=== PATIENT | male | born 1960 | race Caucasian/White ===

== ENCOUNTER 2020-09-09 09:14 | Day surgery (SDC) | payer OTHER, SELFPAY ==
[2020-09-05 12:16] VITALS: BMI 27.3
--- NOTE | 2020-09-08 08:56 | HO.ANESPROP2 ---
Documented by User: Olivia Lee 09/08/20 08:57 HPI - Anesthesia Eval Consult details Narrative: 60yo M for Colonoscopy PMFSH Past Medical History Medical History Cervical radiculopathy Elevated cholesterol HTN (hypertension) Hx of renal calculi Smoker Surgical History Surgical History Hx of colonoscopy Social History Social History Alcohol intake: current Alcohol intake frequency: a few times a month Smoking Status: Current every day smoker Tobacco Type: Cigarette Years Smoked: 45 Use of substances other than those prescribed or required for medical reasons: No Advance Directives: No Advance Directives Information Provided: No Advance Directives on File: No Meds Allergies Allergy/AdvReac Type Severity Reaction Status Date / Time No Known Allergies Allergy Verified 09/08/20 08:58 Home Medications Medication Instructions Recorded Confirmed Type amlodipine 1 tab PO DAILY 09/05/20 09/09/20 History gabapentin 100 mg PO TID PRN 09/05/20 09/09/20 History lisinopril 1 tab PO DAILY 09/05/20 09/09/20 History pravastatin 1 tab PO DAILY 09/05/20 09/09/20 History pyridoxine (vitamin B6) tab PO 09/05/20 History Exam Exam Date and Time: September 08, 2020 0856 Height,Weight and Vital Signs: Height 5 ft 8 in Weight 81.647 kg Assessment and Plan Assessment Anesthesia Assessment: Chart Reviewed Documented by User: Breanne Pineda 09/09/20 10:25 PMFSH Past Medical History Medical History Cervical radiculopathy Elevated cholesterol HTN (hypertension) Hx of renal calculi Smoker Surgical History Surgical History Hx of colonoscopy Social History Social History Alcohol intake: current Alcohol intake frequency: a few times a month Smoking Status: Current every day smoker Tobacco Type: Cigarette Years Smoked: 45 Use of substances other than those prescribed or required for medical reasons: No Advance Directives: No Advance Directives Information Provided: No Advance Directives on File: No Meds Allergies Allergy/AdvReac Type Severity Reaction Status Date / Time No Known Allergies Allergy Verified 09/08/20 08:58 Home Medications Medication Instructions Recorded Confirmed Type amlodipine 1 tab PO DAILY 09/05/20 09/09/20 History gabapentin 100 mg PO TID PRN 09/05/20 09/09/20 History lisinopril 1 tab PO DAILY 09/05/20 09/09/20 History pravastatin 1 tab PO DAILY 09/05/20 09/09/20 History pyridoxine (vitamin B6) tab PO 09/05/20 History Assessment and Plan Assessment Anesthesia Assessment: Anesthesia Plan Discussed, Smoking Cess. Discussed and Chart Reviewed Final Anesthetic Review NPO: Yes ASA Class: II Final Preanesthetic Review: No Changes in Pt Med Stat, Meds/Allgs Chart Reviewed, Consent Obtained/Reviewed and Anes Risks/Benef Reviewed Patient Risk: Low Procedure Risk: Low Anesthetic Plan Anesthetic Plan: MAC: Disposition: Standard PACU
[2020-09-09 09:41] VITALS: BP 129/84; PULSE 74; RESP 20; TEMP 35.7; O2SAT 99
--- NOTE | 2020-09-09 10:18 | MHC.SHP ---
Pre-Procedural Eval Section A The patient is an INPATIENT: No The History & Physical has been completed within 30 days and I have reviewed it.: No Section B Chief Complaint: SCREENING Details of Present Illness: He denies any bowel problems nor are there any upper GI problems. THere are no prior problems with anesthesia or sedation. He denies any cardiac or respiratory problems. There is no known FHX of crc or polyps, the patient had 3 TA's removed in 2013. Relevant Social History: Tobacco Use Present Medications: see Short Stay Collaborative assessment Medical History: Significant History ( Insomina. High BP. Kidney stones. Hematuria. Smoker - onset 14, 1ppd x 45yrs, 45pyh. ) History of Previous Operations: Relevant previous surgery/procedure and date(s) (Colonoscopy 2013) Allergies: Allergies Allergy/AdvReac Type Severity Reaction Status Date / Time No Known Allergies Allergy Verified 09/08/20 08:58 Review of Systems Sugical H&P ROS: Negative: Constitution, Cardiovascular, Respiratory and Gastrointestinal Exam Surgical H&P Exam: Normal: Heart, Normal: Lungs and Normal: Extremities Plan Diagnosis/Plan: Unchanged Patient has been examined and remains a candidate for the planned procedure
--- NOTE | 2020-09-09 10:25 | P.CONAN_ITS ---
[facility] Past Medical History Medical History Cervical radiculopathy Elevated cholesterol HTN (hypertension) Hx of renal calculi Smoker Surgical History Surgical History Hx of colonoscopy Social History Social History Alcohol intake: current Alcohol intake frequency: a few times a month Smoking Status: Current every day smoker Tobacco Type: Cigarette Years Smoked: 45 Use of substances other than those prescribed or required for medical reasons: No Advance Directives: No Advance Directives Information Provided: No Advance Directives on File: No Meds Allergies Allergy/AdvReac Type Severity Reaction Status Date / Time No Known Allergies Allergy Verified 09/08/20 08:58 Home Medications Medication Instructions Recorded Confirmed Type amlodipine 1 tab PO DAILY 09/05/20 09/09/20 History gabapentin 100 mg PO TID PRN 09/05/20 09/09/20 History lisinopril 1 tab PO DAILY 09/05/20 09/09/20 History pravastatin 1 tab PO DAILY 09/05/20 09/09/20 History pyridoxine (vitamin B6) tab PO 09/05/20 History Exam Exam Date and Time: September 09, 2020 1025 Height,Weight and Vital Signs: Height 5 ft 8 in Weight 81.647 kg Last Vital Signs Temp 96.2 F L 09/09/20 09:41 Pulse 74 09/09/20 09:41 Resp 20 09/09/20 09:41 BP 129/84 09/09/20 09:41 Pulse Ox 99 09/09/20 09:41 Airway Mallampati Class: II TM Dist: >3cm Neck ROM: Full Partial: Upper Heart: RRR Lungs: CTA
[2020-09-09 11:23] VITALS: BP 100/68; PULSE 89; RESP 16; TEMP 36.6; O2SAT 96
[2020-09-09 11:38] VITALS: BP 125/80; PULSE 62; RESP 16; O2SAT 96
--- NOTE | 2020-09-09 12:12 | HO.POSTANES ---
Post Anesthesia Evaluation Post Anesthesia Evaluation Vital Signs: Vital Signs Temp Pulse Resp BP Pulse Ox 09/09/20 11:38 97.9 F 62 16 125/80 96 09/09/20 11:23 97.9 F 89 16 100/68 96 09/09/20 09:41 96.2 F L 74 20 129/84 99 Anesthesia: Monitored (tiva) Mental Status: Awake Pain Control: Satisfactory Nausea/Vomiting: None Hydration: Adequate Anesthesia-Related Issues: No Anes. Related Issues
--- NOTE | 2020-09-09 18:01 | P.OP_ITS ---
Operative Note Operative Note Narrative: Date of procedure: 09/09/20 Indications: colon cancer screening Postoperative diagnosis: colon polyps, diverticulosis Procedure: COLONOSCOPY TILL CECUM WITH SNARE POLYPECTOMY AND SUBMUCOSAL INJECTION Consent: Indications for the procedure and potential complications of bleeding, perforation, reaction to medications and missed diagnosis were discussed with the patient and informed consent was obtained. Instrument: Olympus PCF H 190 L variable stiffness pediatric colonoscope Monitoring: Vital signs and clinical assessment, intermittent blood pressure monitoring, continuous EKG monitoring, Pulse oximetry and Carbon Dioxide monitoring were done throughout the procedure. Colon withdrawl time was 35 minutes. Procedure: The patient was placed in the left lateral decubitis position and pre-procedure medications were administered. After a digital rectal examination of the ano-rectum, the video colonoscope was inserted into the rectum and advanced through the colon to the cecum. The colonoscope was slowly withdrawn in a retrograde panoramic fashion and the colon mucosa was carefully examined including a retroflexed view of the rectum. Findings and interventions are described below. Procedure Difficulty: Without difficulty. There was excessive spasm in the colon. Findings: Terminal Ileum: Not evaluated Cecum: Normal Ascending Colon: A 12-15 mm flat polyp in proximal AC raised with 5 cc of normal saline (submucosal injection) and removed with a hot snare. Moderate diverticulosis. Transverse Colon: A 10-12 mm sessile polyp removed with a hot snare and moderate diverticulosis. Descending Colon: Moderate diverticulosis. Sigmoid Colon: A 10-12 mm sessile polyp removed with a hot snare. Moderate diverticulosis Rectum: Normal Ano-rectum: Normal Colon preparation: Good after copious irrigation and fair in some areas Impression and Post Procedure Diagnosis: Colonoscopy Findings: Three medium sized polyps removed Moderate diverticulosis seen in the entire colon Moderate hemorrhoids on retroflexed exam. Plan: Await pathology results Patient has an appointment on 10/03/20 in the [facility] with Emily Mcneil NP -. Repeat Colonoscopy interval based on path results - in 3 years if polyps are adenomatous and 5 years if polyps are hyperplastic. Above findings were reviewed with the patient and colon polyps and diverticulosis handouts were given in the discharge area Surgeon: Kathleen Terrell MD Anesthesia: MAC (Dr Salazar) Biomedical Analytical Scientist: Logan Ramirez Estimated blood loss (mL): 0 Pathology: other (A. AC polyp x 1, B. TC polyp x 1, C. SC polyp x 1) Condition: stable Disposition: PACU
== END 2020-09-09 12:45 | disposition home or self-care (01) ==
PROVIDERS: PCP Nurse Practitioner Family; Visit Provider Internal Medicine Gastroenterology
PROC: 0DJD8ZZ Inspection of Lower Intestinal Tract, Via Natural or Artificial Opening Endoscopic (ICD-10-PCS; CPT 45378; principal; 2020-09-09 10:30)
DX: Z12.11 Encounter for screening for malignant neoplasm of colon (principal); Z86.010 Personal history of colon polyps; D12.2 Benign neoplasm of ascending colon; D12.3 Benign neoplasm of transverse colon; D12.5 Benign neoplasm of sigmoid colon; K57.30 Diverticulosis of large intestine without perforation or abscess without bleeding; I10 Essential (primary) hypertension; Z79.899 Other long term (current) drug therapy; F17.210 Nicotine dependence, cigarettes, uncomplicated
CPT/HCPCS: 45385; 45381; 88305

== ENCOUNTER 2020-12-07 12:21 | Outpatient (REF) | payer OTHER, SELFPAY ==
[2020-12-07 14:28] LABS: Alanine Aminotransferase 20 U/L (0-40); Albumin Level 4.5 g/dL (3.5-5.0); Alkaline Phosphatase 72 U/L (39-117); Anion Gap 16 (12-20); Aspartate Amino Transferase 24 U/L (5-37); Bilirubin Total 0.8 mg/dL (0.0-1.0); Blood Urea Nitrogen 16 mg/dL (9-16); Calcium 9.2 mg/dL (8.4-10.2); Carbon Dioxide 27 mmol/L (22-29); Chloride 105 mmol/L (96-108); Cholesterol 266 mg/dL; Estimated Glomerular Filt Rate > 60; Glucose Fasting 97 mg/dL (60-99); HDL Cholesterol 69 mg/dL; LDL Cholesterol Calculated 164 mg/dl; Potassium 4.6 mmol/L (3.3-5.1); Sodium 143 mmol/L (135-145); Total Protein 7.5 g/dL (6.5-8.0); Triglycerides 165 mg/dL
[2020-12-07 14:49] LABS: Prostate Specific Antigen Scr 2.54 ng/mL (<0.05-4.0); TSH reflex Free T4 1.06 uIU/mL (0.32-4.0)
== END 2020-12-07 12:22 | disposition home or self-care (01) ==
LOC: HO.HMGCLDS 12:21
PROVIDERS: PCP Nurse Practitioner Family; Visit Provider Nurse Practitioner Family
DX: Z00.00 Encounter for general adult medical examination without abnormal findings (principal); Z12.5 Encounter for screening for malignant neoplasm of prostate
CPT/HCPCS: 36415; 80053; 80061; 81002; 84153; 84443

== ENCOUNTER 2021-03-02 06:08 | Outpatient (REF) | payer OTHER, SELFPAY ==
[2021-03-02 12:35] LABS: Cholesterol 238 mg/dL; HDL Cholesterol 56 mg/dL; LDL Cholesterol Calculated 157 mg/dl; Triglycerides 126 mg/dL
== END 2021-03-02 06:09 | disposition home or self-care (01) ==
LOC: HO.HMGCLDS 06:08
PROVIDERS: PCP Nurse Practitioner Family; Visit Provider Nurse Practitioner Family
DX: E78.5 Hyperlipidemia, unspecified (principal)
CPT/HCPCS: 36415; 80061

== ENCOUNTER 2021-06-05 16:14 | Outpatient (REF) | payer OTHER, SELFPAY ==
--- NOTE | ~2021-06-05 | CT_ITS ---
EXAMINATION: CT CHEST SCREENING CLINICAL INFORMATION: Nicotine dependence, cigarettes, uncomplicated. COMPARISON: None. TECHNIQUE: Multidetector volumetric CT imaging of the chest is performed without contrast using low-dose technique. Additional 2-D coronal and sagittal reformatted images and axial 3-D maximum intensity projection (MIP) images are generated on the CT workstation. This CT examination was performed using dose optimization techniques as appropriate, variously including the following: *Automated exposure control *Adjustment of mA and/or kV according to patient size (this includes techniques or standardized protocols for targeted exams where dose is matched to indication/reason for exam; i.e. extremities or head) *Use of iterative reconstruction technique DLP: 56 mGy-cm FINDINGS: LUNGS: There is centrilobular emphysema in both lungs with a few scattered pulmonary nodules. 2 mm nodule left upper lobe laterally image 181/6, 1 mm nodule right upper lobe axial image 164/6, 2 mm nodule right middle lobe axial image 307/6, and 2 mm nodule right lower lobe axial image 303/6. There is a 2 mm nodule left lower lobe axial image 400/6. MEDIASTINUM: The thyroid lobes are symmetrical and normal. There are coronary artery calcifications. The ascending aorta measures 4.00 cm. Central trachea and the bronchi are widely patent. No abnormal sized mediastinal mass or lymph node seen. There is no pericardial effusion. PLEURA: There is no pleural effusion. No pleural mass or thickening. AXILLA: No lymphadenopathy. UPPER ABDOMEN: Visualized liver, spleen, pancreas, and bilateral adrenal glands are unremarkable. OSSEOUS STRUCTURES: There is mild ventral spondylosis mid dorsal spine. No lytic or sclerotic process seen. CT/CT lung screening IMPRESSION: Emphysema and multiple pulmonary nodules are stable. No new pulmonary nodules seen. No abnormal mediastinal or axillary lymphadenopathy. ASSESSMENT: Lung-RADS category 2: Benign RECOMMENDATION: Low dose annual CT chest
== END 2021-06-05 16:15 | disposition home or self-care (01) ==
LOC: HO.CT 16:14
PROVIDERS: Visit Provider Physician Assistant Medical
DX: Z12.2 Encounter for screening for malignant neoplasm of respiratory organs (principal); F17.210 Nicotine dependence, cigarettes, uncomplicated
CPT/HCPCS: 71271

== ENCOUNTER 2021-10-10 13:59 | Outpatient (REF) | payer OTHER, SELFPAY ==
[2021-10-10 15:04] LABS: Influenza A PCR NEGATIVE (Negative); Influenza B PCR NEGATIVE (Negative); Resp Syncy Virus RNA Qual PCR NEGATIVE (Negative); SARS COV2 PCR INHOUSE POSITIVE (Negative)
== END 2021-10-10 14:00 | disposition home or self-care (01) ==
LOC: HO.LNP 13:59
PROVIDERS: Visit Provider Physician Assistant Medical
DX: Z20.822 Contact with and (suspected) exposure to COVID-19 (principal); J06.9 Acute upper respiratory infection, unspecified
CPT/HCPCS: 0241U

== ENCOUNTER 2021-10-23 09:21 | Outpatient (REF) | payer OTHER, SELFPAY | END 2021-10-23 09:22 | disposition home or self-care (01) | LOC: HO.HMGCLDS 09:21 | PROVIDERS: Visit Provider Internal Medicine | DX: Z20.822 Contact with and (suspected) exposure to COVID-19 (principal) | CPT/HCPCS: C9803; U0003; U0005 ==

== ENCOUNTER 2022-03-05 11:48 | Outpatient (REF) | payer OTHER, SELFPAY ==
[2022-03-05 13:38] LABS: MANUAL DIFF FLAG NO
[2022-03-05 13:45] LABS: Appearance Urine HAZY; Color Urine YELLOW; Glucose Urine UA NEG (NEG); Leukocyte Esterase Urine NEG (NEG); Nitrite Urine NEG (NEG); Specific Gravity - Urine 1.025 (1.005-1.025); Urine Blood NEG (NEG); Urine Ketones NEG (NEG); Urine Protein NEG (NEG-TRACE)
[2022-03-05 13:48] LABS: Basophils Absolute Auto 0.1 X10*3/uL (0.0-0.2); Basophils Percent Auto 0.9 % (0-2); Eosinophils Absolute Auto 0.4 X10*3/uL (0.0-0.4); Eosinophils Percent Auto 4.6 % (0-4); Hematocrit 46.4 % (42.0-52.0); Hemoglobin 15.7 g/dl (14.0-18.0); Imm Gran Abs Auto 0.03 X10*3/uL (0.00-0.03); Imm Gran Pct Auto 0.4 % (0.0-0.4); Lymphocytes Absolute Auto 2.2 X10*3/uL (1.2-4.9); Lymphocytes Percent Auto 28.6 % (20-40); Mean Corpuscular HGB Conc 33.8 g/dl (31.0-36.0); Mean Corpuscular Hemoglobin 30.9 pg (27.0-33.0); Mean Corpuscular Volume 91.3 fL (80.0-98.0); Mean Platelet Volume 10.5 fL (9.4-12.4); Monocytes Absolute Auto 0.6 X10*3/uL (0.1-1.2); Monocytes Percent Auto 8.1 % (2-11); Neutrophils Absolute Auto 4.5 x10*3/uL (2.0-8.3); Neutrophils Percent Auto 57.4 % (45-73); Platelet Count 242 X10*3/uL (160-400); Red Blood Count 5.08 X10*6/uL (4.60-5.80); Red Cell Distribution Width 12.9 % (11.0-16.0); White Blood Count 7.8 X10*3/uL (4.8-10.8)
[2022-03-05 14:05] LABS: Alanine Aminotransferase 23 U/L (0-40); Albumin Level 4.4 g/dL (3.5-5.0); Alkaline Phosphatase 70 U/L (39-117); Anion Gap 14 (12-20); Aspartate Amino Transferase 24 U/L (5-37); Bilirubin Total 0.7 mg/dL (0.0-1.0); Blood Urea Nitrogen 12 mg/dL (9-16); Calcium 9.7 mg/dL (8.4-10.2); Carbon Dioxide 23 mmol/L (22-29); Chloride 108 mmol/L (96-108); Cholesterol 216 mg/dL; Estimated Glomerular Filt Rate > 60; Glucose Fasting 93 mg/dL (60-99); HDL Cholesterol 70 mg/dL; LDL Cholesterol Calculated 115 mg/dl; Potassium 4.6 mmol/L (3.3-5.1); Sodium 140 mmol/L (135-145); Total Protein 7.4 g/dL (6.5-8.0); Triglycerides 159 mg/dL
[2022-03-05 14:23] LABS: Prostate Specific Antigen Scr 2.77 ng/mL (<0.05-4.0); TSH reflex Free T4 1.44 uIU/mL (0.32-4.0)
== END 2022-03-05 11:49 | disposition home or self-care (01) ==
LOC: HO.HMGCLDS 11:48
PROVIDERS: Visit Provider Nurse Practitioner Family
DX: Z00.00 Encounter for general adult medical examination without abnormal findings (principal); Z13.220 Encounter for screening for lipoid disorders; Z13.29 Encounter for screening for other suspected endocrine disorder; Z12.5 Encounter for screening for malignant neoplasm of prostate
CPT/HCPCS: 36415; 80053; 80061; 81003; 84153; 84443; 85025

== ENCOUNTER 2024-12-22 13:34 | Outpatient (AMB) | payer MEDICARE, SELFPAY ==
--- NOTE | 2024-12-22 13:46 | MHC.OFFWIV ---
Intake Vital Signs 12/22/24 13:49 Weight 187 lb BP 140/100 H Blood Pressure Location Lt brachial Position Sitting Pulse 61 Pulse Source Pulse Oximeter Temp 98.1 F Temp Source Oral Pulse Oximetry (%) 94 Oxygen Delivery Method Room Air Intake Visit Reasons: EP SOB, fever, sore throat Intake Note: Patient here for SOB, fever, cough, chest congestion that has been present for 1 week. Patient Tobacco Use Status: Current everyday Tobacco user Allergies lisinopril Allergy (Intermediate, Verified 12/22/24 13:50) Muscle Pain Do you need a note to return to daycare/school/sports/work: No HPI HPI Comments History of Present Illness Details History - The patient is a 64-year-old male presenting with acute shortness of breath and cough x 1 week. - Symptoms commenced mid-week with sudden breathing difficulties manifesting alongside a persistent cough, initially without other symptoms. - The patient has a long history of smoking, though specific details of duration remain unspecified, indicating potential respiratory implications. Denies asthma or COPD diagnosis. Does not use inhalers regularly. - Episodes of acute dyspnea were recurring over several days, requiring positional changes for relief. - A trial of an unknown inhaler by a third libertarian provided limited improvement - Circumstantial development of both respiratory and cough symptoms seemed synchronous, localized to the chest region. - Pharmacological interventions included Tylenol and Aleve, aiding some symptomatic reduction like fever resolution. Physical Exam General: Cooperative, healthy appearing, comfortable and no acute distress Orientation/consciousness: Patient oriented x3 Limitations: No limitations Head: Normal to inspection Ears: Hearing grossly normal bilaterally, external ears normal and TM's normal bilaterally Nose: Normal external nose present, Normal nares present and No nasal discharge present Face and sinus: Normal facial exam and Yes sinuses nontender Mouth: Normal oral and palatal mucosa present and moist mucous membranes Throat: Yes tonsils normal, Yes uvula midline. Posterior oropharynx erythema Eyes: Appearance normal, both eyes and all related structures Neck: Normal visual inspection Respiratory: dim and vesicular throughout, no wheeze noted. Normal respiratory effort, able to speak in complete sentences, Actively coughing, no respiratory distress, not tachypneic, no tripod positioning and no use of accessory muscles Cardiovascular: Regular rate and rhythm. Normal S1 and S2 Skin: No rashes or lesions noted Neuro: Patient oriented x3 Extremities: Normal to inspection and Yes no clubbing, cyanosis or edema Plan A chest x-ray will be performed to assess for potential pneumonia, supported by the diminished and crackling lung sounds during the physical exam. An albuterol inhaler is prescribed to manage acute bronchodilation needs, with comprehensive guidance on its use. A six-day steroid taper with methylprednisolone is planned for alleviating airway inflammation. Proper dosing was instructed, emphasizing morning consumption to enhance treatment efficacy. Nasal swabs for flu, COVID-19, and other respiratory infections have been collected to guide any subsequent treatment maneuvers. If x-ray findings indicate pneumonia, oral antibiotics will be initiated. Patient education included advocating prompt emergency care, should the patient experience severe respiratory compromise, to ensure timely medical intervention remains accessible. Patient was informed and verbally consented to the use of an ambient scribe for clinic note documentation during this visit History - The patient is a 64-year-old male presenting with acute shortness of breath and cough. - Symptoms commenced mid-week with sudden breathing difficulties manifesting alongside a persistent cough, initially without other symptoms. - The patient has a long history of smoking, though specific details of duration remain unspecified, indicating potential respiratory implications. - Episodes of acute dyspnea were recurring over several days, requiring positional changes for relief. - A trial of an unknown inhaler by a third libertarian provided limited improvement before plans for a personalized prescription. - Circumstantial development of both respiratory and cough symptoms seemed synchronous, localized to the chest region. - Vital signs revealed initial bradycardia with subsequent stabilization. Hypertension is on record per a previous medical evaluation. - Pharmacological interventions included Tylenol and Aleve, aiding some symptomatic reduction like fever resolution. Physical Exam General: Cooperative, healthy appearing, comfortable and no acute distress Orientation/consciousness: Patient oriented x3 Limitations: No limitations Head: Normal to inspection Ears: Hearing grossly normal bilaterally, external ears normal and TM's normal bilaterally Nose: Normal external nose present, Normal nares present and No nasal discharge present Face and sinus: Normal facial exam and Yes sinuses nontender Mouth: Normal oral and palatal mucosa present and moist mucous membranes Throat: Yes tonsils normal, Yes uvula midline. Posterior oropharynx erythema Eyes: Appearance normal, both eyes and all related structures Neck: Normal visual inspection Respiratory: Clear to auscultation bilaterally. Normal respiratory effort, able to speak in complete sentences, Actively coughing, no respiratory distress, not tachypneic, no tripod positioning and no use of accessory muscles Cardiovascular: Regular rate and rhythm. Normal S1 and S2 Skin: No rashes or lesions noted Neuro: Patient oriented x3 Extremities: Normal to inspection and Yes no clubbing, cyanosis or edema PFSH Medical History Cervical radiculopathy Diverticulosis Elevated cholesterol HTN (hypertension) Hx of renal calculi Smoker Surgical History Hx of colonoscopy Family History Father Prostate cancer Mother Bone cancer Social History Housing: House Alcohol intake: current Alcohol intake frequency: a few times a month Patient Tobacco Use Status: Current everyday Tobacco user Cigarettes Per Day: 10 Years Smoked: 45 e-Cigarette/Vaping Use: Never Used Second Hand Smoke Exposure: No Current occupational status: employed Cognitive needs: No Hearing needs: No Vision needs: No Review of Systems Const All systems reviewed & are unremarkable except as noted in HPI and below Physical Exam Vital Signs: Last Vital Signs Temp 98.1 F 12/22/24 13:49 Pulse 51 12/22/24 13:49 BP 140/100 H 12/22/24 13:49 Pulse Ox 94 12/22/24 13:49 Oxygen Delivery Method Room Air 12/22/24 13:49 Assessment & Plan Assessment & Plan (1) URI (upper respiratory infection): Code(s): J06.9 - Acute upper respiratory infection, unspecified Qualifiers: URI type: unspecified URI Qualified Code(s): J06.9 - Acute upper respiratory infection, unspecified Plan: Plan A chest x-ray will be performed to assess for potential pneumonia, supported by O2 sat 94%, the diminished and vesicular lung sounds during the physical exam. An albuterol inhaler is prescribed to manage acute bronchodilation needs, with comprehensive guidance on its use. A six-day steroid taper with methylprednisolone is planned for alleviating airway inflammation. Proper dosing was instructed, emphasizing morning consumption to enhance treatment efficacy. Nasal swabs for flu, COVID-19, and other respiratory infections have been collected to guide any subsequent treatment maneuvers. If x-ray findings indicate pneumonia, oral antibiotics will be initiated. Patient education included advocating prompt emergency care, should the patient experience severe respiratory compromise, to ensure timely medical intervention remains accessible. Patient was informed and verbally consented to the use of an ambient scribe for clinic note documentation during this visit Orders: Orders SARS-CoV2/FLU/RSV Today J06.9 - Acute upper respiratory infection, unspecified XR chest 2V Today R05.9 - Cough, unspecified Medications: New albuterol sulfate 90 mcg/actuation 2 puffs inhalation Q6H PRN 8.5 grams 0RF shortness of breath or wheezing or cough methylprednisolone PO PER PKG DIR for 6 days 21 ea 0RF Coding Level of Care Code Est Pt Level 4 (04615) Diagnoses Upper respiratory tract infection, unspecified type J06.9 URI type: unspecified URI
[2024-12-22 13:49] VITALS: BP 140/100; PULSE 61; TEMP 36.7; O2SAT 94
--- OUTSIDE RECORDS SUMMARY | 2024-12-22 14:30 | XMS_ITS | Clinical Summary ---
Author Organization [facility] ity Address [address] [place] [address] Care Team Providers Care Heel Seater Name Role Phone Unavailable Primary Care Provider Unavailabl e Social History Tobacco Use Types Packs/Day Years Used Date Smoking Tobacco: Never Assessed Sex and Gender Information Value Date Recorded Sex Assigned at Not on file Legal Sex Male 1:28 PM EST Gender Identity Not on file Sexual Orientation Not on file Plan of Treatment Health Maintenance Due Date Last Done Comments DTaP,Tdap,and Td Vaccines (1 - Tdap) 1978 Pneumococcal Vaccine: 50+ Ye ars (1 of 1 - PCV) 2009 Zoster Vaccines (1 of 2) 2009 COVID-19 Vaccine ( - 2023-2 5 season) 2024 Influenza Vaccine (#1) 2024 RSV Immunization Patients 60 + Years Old (1 - 1-dose 75+ series) 2034 HIB Vaccines Aged Out No longer eligi ble based on patient's age to complete this topic HPV Vaccines Aged Out No longer eligi ble based on patient's age to complete this topic Hepatitis A Vaccines Aged Out No long er eligible based on patient's age to complete this topic Hepatitis B Vaccines Aged Out No long er eligible based on patient's age to complete this topic IPV Vaccines Aged Out No longer eligi ble based on patient's age to complete this topic MMR Vaccines Aged Out No longer eligi ble based on patient's age to complete this topic Meningococcal ACWY Vaccine Aged Out N o longer eligible based on patient's age to complete this topic Meningococcal B Vacine Aged Out No lo nger eligible based on patient's age to complete this topic Pneumococcal Vaccine: Pediat rics (0 to 5 Years) and At-Risk Patients (6 to 64 Years) Aged Out No longer eligible b ased on patient's age to complete this topic RSV Immunization Patients Un gabriele 20 months Aged Out No longer eligible b ased on patient's age to complete this topic Varicella Vaccines Aged Out No longer eligible based on patient's age to complete this topic
== END 2024-12-22 14:24 | disposition home or self-care (01) ==
PROVIDERS: PCP Nurse Practitioner Family; Visit Provider Physician Assistant
DX: J06.9 Acute upper respiratory infection, unspecified (principal)

== ENCOUNTER 2024-12-22 13:34 | Outpatient (REF) | payer MEDICARE, SELFPAY ==
--- OUTSIDE RECORDS SUMMARY | 2024-12-22 15:10 | XMS_ITS | Clinical Summary ---
Author Organization [facility] ity Address [address] [place] [address] Care Team Providers Care Inspector Floor Sub Assembly Name Role Phone Unavailable Primary Care Provider [...]
[2024-12-22 17:01] LABS: Influenza A PCR NEGATIVE (Negative); Influenza B PCR NEGATIVE (Negative); Resp Syncy Virus RNA Qual PCR NEGATIVE (Negative); SARS COV2 PCR INHOUSE NEGATIVE (Negative)
== END 2024-12-22 13:35 | disposition home or self-care (01) ==
LOC: HO.LAB 13:34
PROVIDERS: Physician Assistant; PCP Nurse Practitioner Family
DX: J06.9 Acute upper respiratory infection, unspecified (principal)
CPT/HCPCS: 0241U; 99212

== ENCOUNTER 2024-12-22 14:18 | Outpatient (REF) | payer MEDICARE, SELFPAY ==
--- NOTE | ~2024-12-22 | XR_ITS ---
CLINICAL HISTORY: R05.9 - Cough, unspecified 2 view chest x-ray Comparison: None Findings: No consolidation or effusion. Heart size is normal. No acute fracture. IMPRESSION: 1. No acute cardiopulmonary abnormality. This document has been electronically signed by: Yvonne Cuenca on 12/23/2024 07:49:27
== END 2024-12-22 14:19 | disposition home or self-care (01) ==
LOC: HO.HMGCX 14:18
PROVIDERS: Visit Provider Physician Assistant
DX: R05.9 Cough, unspecified (principal); J06.9 Acute upper respiratory infection, unspecified
CPT/HCPCS: 0241U; 71046; 99212

== ENCOUNTER → 2024-12-22 14:31 | Outpatient (BNV) | payer MEDICARE, SELFPAY | PROVIDERS: Visit Provider Radiology Vascular & Interventional Radiology | DX: R05.9 Cough, unspecified (principal) | CPT/HCPCS: 71046 ==

== ENCOUNTER 2025-03-10 12:21 | Inpatient (IN) | payer MEDICARE, SELFPAY ==
[2025-03-10] VITALS (12 sets, daily range): BP systolic 131–191; BP diastolic 80–119; PULSE 92–114; RESP 18–25; TEMP 36.7–37.1; O2SAT 88–98; BMI 28.8
--- NOTE | ~2025-03-10 | CT_ITS ---
CLINICAL HISTORY: sob CT chest without IV contrast. COMPARISON: XR chest dated 03/10/25 at 14:11 EDT FINDINGS: Visualized thyroid is unremarkable. No supraclavicular or axillary lymphadenopathy. Main pulmonary artery is enlarged measuring up to 3.3 cm. This can be associated with pulmonary hypertension. Ascending aortic ectasia measuring up to 4.2 cm. Coronary artery calcifications present within the left main, LAD, circumflex and RCA. Aortic annular and valve calcifications. Mitral annular calcifications. No pericardial effusion. Normal esophagus. Multiple normal-sized mediastinal lymph nodes. Small bilateral pleural effusions. Moderate to advanced emphysema. Smooth interlobular septal thickening. Ground-glass and consolidation overlying the pleural effusions along the lung bases, favored to represent atelectasis, [id number]. Trachea and central airways are clear. Mild diffuse bronchial wall thickening. No bronchiectasis. Visualized portions of the upper abdomen are unremarkable. Flowing marginal osteophytes along the mid to lower thoracic spine. No acute fracture or suspicious bone lesion. IMPRESSION: 1. Small bilateral pleural effusions with interstitial edema. 2. Atelectasis along the lung bases bilaterally. 3. Moderate to advanced emphysema. 4. Coronary artery atherosclerosis. Mitral annular and aortic annular and valve calcifications present. This document has been electronically signed by: Reinaldo Cheek MD on 03/10/2025 17:47:34
--- NOTE | ~2025-03-10 | XR_ITS ---
EXAMINATION: XR CHEST 2 VIEWS HISTORY: SOB COMPARISON: Comparison is made with the prior examination dated 12/22/2024. FINDINGS: PA and lateral views of the chest are submitted. There is airspace opacity in the right lower lobe consistent with pneumonia. There is an associated small right pleural effusion. The left lung is clear. There is no left pleural effusion, pneumothorax, or pulmonary vascular congestion. The heart is normal in size. There is degenerative disc disease of the spine. XR/XR chest 2V IMPRESSION: Right lower lobe pneumonia with an associated small pleural effusion. Follow-up is recommended to document resolution. Electronically signed by: Neeraj Villeda MD 03/10/2025 02:15 PM EDT
--- NOTE | 2025-03-10 13:09 | ED.GENADULT ---
HPI - General Adult General Chief complaint: Dyspnea Stated complaint: SOB Time Seen by Provider: 03/10/25 14:47 Source: patient Mode of arrival: ambulatory Limitations: no limitations History of Present Illness ED Provider: DR. Cruz HPI narrative: A 64 year year old male history of hypertension patient is not compliant with his medication for the last year, did not see PCP for over a year, seen at walk-in clinic for upper respiratory symptoms about 2 months ago, ever since patient been having shortness of breath mostly exertional, patient also having hard time to stay supine at night because of the difficulty breathing, no lower extremity swelling, no sick contacts, no fever, no chills. +nonproductive cough, patient is an active cigarette smoker. No CP, no recent travel, no lower extremity swelling or tenderness. Related Data Previous Rx's ?Medication ?Instructions ?Recorded albuterol sulfate 90 mcg/actuation 2 puff inhalation Q6H PRN 12/22/24 aerosol inhaler shortness of breath or wheezing or cough #8.5 grams methylprednisolone 4 mg tablets in See Rx Instructions PO PER PKG DIR 12/22/24 a dose pack #21 ea Allergies Allergy/AdvReac Type Severity Reaction Status Date / Time lisinopril Allergy Intermediate Muscle Pain Verified 03/10/25 13:10 Review of Systems Review of Systems: All other systems are reviewed and are negative Constitutional: Reports as per HPI and Reports no additional constitutional complaints Eyes: Reports as per HPI and Reports no additional eye complaints Reports system reviewed and no additional complaints, except as documented Cardiovascular: Reports as per HPI and Reports no additional cardiovascular complaints Respiratory: Reports as per HPI and Reports no additional respiratory complaints Gastrointestinal: Reports as per HPI and Reports no additional gastrointestinal complaints Genitourinary: Reports no additional female genitourinary complaints Musculoskeletal: Reports no additional musculoskeletal complaints Skin/Breast: Reports system reviewed and no additional complaints, except as docu Psychiatric: Reports no additional psychiatric complaints Endocrine: Reports no additional endocrine complaints Hematologic/Lymphatic: Reports no additional hematologic/lymphatic complaints Allergic/Immunologic: Reports no additional allergic/immunologic complaints Reports system reviewed and no additional complaints, except as documented and Reports Abnormal speech present [facility] Past Medical History Medical History Diverticulosis Smoker Hx of renal calculi Cervical radiculopathy Elevated cholesterol HTN (hypertension) Surgical History Hx of colonoscopy Family History Family History Father Prostate cancer Mother Bone cancer Social History Social History Housing: House Alcohol intake: current Alcohol intake frequency: a few times a month Patient Tobacco Use Status: Current everyday Tobacco user Cigarettes Per Day: 10 Years Smoked: 45 e-Cigarette/Vaping Use: Never Used Second Hand Smoke Exposure: No Advance Directives: No Advance Directives Information Provided: Yes Current occupational status: employed Cognitive needs: No Hearing needs: No Vision needs: No Physical Exam ED Vital Signs: Vital Signs - 24 hr 03/10/25 13:08 03/10/25 13:25 03/10/25 14:45 Temperature 98.0 F 98.8 F Pulse Rate 106 H 106 H 108 H Respiratory Rate 18 18 24 H Blood Pressure 165/109 H 186/119 H Pulse Oximetry 95 98 Oxygen Delivery Method Room Air Room Air BMI result Body Mass Index 28.8 Vital signs have been reviewed and appear to be correct. Blood pressure elevated. Heart rate normal. Respiratory rate normal. Temperature normal. Oxygen saturation normal. Appearance: Alert. Oriented X3. No acute distress. Head: Normal external exam. Normocephalic. Atraumatic. No Valdez signs noted. No raccoon eyes noted Eyes: PERRLA. EOMI. Conjunctiva and sclera normal. Eyelids normal. ENT: TM's Normal. Pharynx normal. Uvula midline. Moist mucous membranes. No trismus noted. No drooling noted. No muffled voice noted. Neck: Normal inspection. Neck supple. FROM. No adenopathy. Thyroid Normal. No meningeal signs. No neck mass noted. CVS: Normal heart rate and rhythm. Heart sound normal. No murmurs noted. Pulses normal throughout. Respiratory: No respiratory distress. Painless inspiration. Breath sounds normal. No wheezes/rales/rhonchi noted. Chest nontender. No accessory muscle usage noted or decreased air movement noted. Abdomen: Soft and nontender. Bowel sounds normal in all 4 quadrants. No distention noted. No organomegaly noted. No visible injury noted. Back: No CVA tenderness. Full range of motion noted. Skin: Skin warm and dry. Normal skin color. Normal skin turgor. No rashes/lesions/lacerations noted. Extremities: +1 bilateral lower extremity edema. Extremities exhibit normal range of motion. Extremities nontender. Neuro: Oriented X 3. Cranial nerve exam: II-XII are grossly intact No motor deficit. No sensory deficit. Reflexes normal. Course Course Course Narrative: This is a Rapid Medical Exam performed in triage by Cami Vallejo PA-C. Full HPI, ROS and PE to be performed by primary ED provider. 64 yo male with PMHx of HTN, HDL, diverticulosis, presenting to the ED c/o chest pain and SOB for 2 months. States he has not been taking his HTN medication for over 1 year. Denies recent travel, fever, nausea, vomiting , urinary symptoms, or diarrhea. PE: talking in complete sentences, lungs CTA, no pedal edema Plan: EKG, trop, labs, UA, chest x-ray Reevaluation(s) Reevaluation #1: 64-year-old male active smoker with left lower lobe pneumonia and meet criteria for SIRS, no severe sepsis or septic shock. Will cover with ceftriaxone and doxycycline. Patient with a mild new onset congestive heart failure with elevated BNP, +1 lower extremity edema and PND which is likely another attributes to patient's symptoms. Time: 15:31 Medications Administered Discontinued Medications Generic Name Dose Route Start Last Admin Trade Name Freq PRN Reason Stop Dose Admin Albuterol Sulfate 5 mg/ 0 mg 03/10/25 13:21 03/10/25 13:25 Albuterol/Ipratropium 3 ml INHALE 03/10/25 13:22 1 each ONCE ONE Administration Medical Decision Making Differential Diagnosis Differential Diagnoses: The differential diagnosis associated with the presentation includes (Pneumonia, pneumothorax, pleural effusion, congestive heart failure, ACS, electrolyte derangement, severe anemia.) Admission/Observation Consideration of admission/observation: Escalation of care including admission/observation considered Consult Healthcare Provider Management of the patient was discussed with: Hospitalist (Dr. Reddy) Lab Data [facility] Lab Attestation statement: I reviewed the patient's lab results. 03/10/25 13:38 03/10/25 13:38 Labs: Lab Results 03/10/25 Range/Units 13:38 WBC 7.9 (4.8-10.8) X10*3/uL RBC 4.32 L (4.60-5.80) X10*6/uL Hgb 13.5 L (14.0-18.0) g/dl Hct 38.6 L (42.0-52.0) % MCV 89.4 (80.0-98.0) fL MCH 31.3 (27.0-33.0) pg MCHC 35.0 (31.0-36.0) g/dl RDW 13.6 (11.0-16.0) % Plt Count 274 (160-400) X10*3/uL MPV 9.4 (9.4-12.4) fL Immature Gran % (Auto) 0.3 (0.0-0.4) % Neut % (Auto) 73.8 H (45-73) % Lymph % (Auto) 16.2 L (20-40) % Lawrence % (Auto) 8.1 (2-11) % Eos % (Auto) 1.1 (0-4) % Baso % (Auto) 0.5 (0-2) % Lymph # (Auto) 1.3 (1.2-4.9) X10*3/uL [place] # (Auto) 0.6 (0.1-1.2) X10*3/uL Eos # (Auto) 0.1 (0.0-0.4) X10*3/uL Baso # (Auto) 0.0 (0.0-0.2) X10*3/uL Abs Immat Gran (auto) 0.02 (0.00-0.03) X10*3/uL Absolute Neuts (auto) 5.9 (2.0-8.3) x10*3/uL Absolute Nucleated RBC 0.000 (0.0-0.012) X10*3/uL Nucleated RBC % (auto) 0.0 (0.0-0.2) /100WBC Sodium 144 (135-145) mmol/L Potassium 3.6 (3.3-5.1) mmol/L Chloride 110 H (96-108) mmol/L Carbon Dioxide 23 (22-29) mmol/L Anion Gap 15 (12-20) BUN 12 (9-16) mg/dL Creatinine 1.08 (0.5-1.4) mg/dL Estim Creat Clear Calc 70.4 Estimated GFR > 60 Random Glucose 109 (60-115) mg/dL Calcium 9.3 (8.4-10.2) mg/dL Magnesium 2.0 (1.6-2.6) mg/dL Total Bilirubin 1.0 (0.0-1.0) mg/dL Direct Bilirubin 0.3 (0.0-0.5) mg/dL AST 33 (5-37) U/L ALT 51 H (0-40) U/L Alkaline Phosphatase 94 (39-117) U/L Troponin I High Sens 27.8 (<3.5-35.0) ng/L B-Natriuretic Peptide 1107 H (<100) pg/mL Total Protein 7.0 (6.5-8.0) g/dL Albumin 4.1 (3.5-5.0) g/dL Influenza Type A (PCR) NEGATIVE (Negative) Influenza Type B (PCR) NEGATIVE (Negative) RSV RNA Qual (PCR) NEGATIVE (Negative) SARS-CoV-2 RNA (RT-PCR) NEGATIVE (Negative) Independent Interpretation I performed an independent interpretation of an: Plain X-Ray (Chest:Right lower lobe pneumonia with an associated small pleural effusion. Follow-up is recommended to document resolution.) Radiology Impression Discussion of test interpretation with radiology: I have reviewed the radiologist's reading. Discharge Plan Discharge Clinical Impression: Pneumonia, Congestive heart failure Patient Disposition: Admitted As Inpatient Print Language: Ivorian
--- NOTE | 2025-03-10 13:11 | ECG_ITS ---
Test Reason : SOB Blood Pressure : */* mmHG Vent. Rate : 108 BPM Atrial Rate : 108 BPM P-R Int : 148 ms QRS Dur : 90 ms QT Int : 298 ms P-R-T Axes : 42 27 135 degrees QTcB Int : 399 ms Sinus tachycardia Septal infarct , age undetermined Abnormal ECG No previous ECGs available Referred By: Cami Vallejo Electronically Signed By: CLIFTON HASSAN
[2025-03-10] MEDS: Albuterol Sulfate 5 MG, Albuterol/Iprat 2.5/0.5MG 3 ML 3 ML INHALE (13:25)
[2025-03-10 13:42] LABS: MANUAL DIFF FLAG NO
[2025-03-10 13:45] LABS: Basophils Percent Auto 0.5 % (0-2); Eosinophils Absolute Auto 0.1 X10*3/uL (0.0-0.4); Eosinophils Percent Auto 1.1 % (0-4); Hematocrit 38.6 % (42.0-52.0); Hemoglobin 13.5 g/dl (14.0-18.0); Imm Gran Abs Auto 0.02 X10*3/uL (0.00-0.03); Imm Gran Pct Auto 0.3 % (0.0-0.4); Lymphocytes Absolute Auto 1.3 X10*3/uL (1.2-4.9); Lymphocytes Percent Auto 16.2 % (20-40); Mean Corpuscular Hemoglobin 31.3 pg (27.0-33.0); Mean Corpuscular Volume 89.4 fL (80.0-98.0); Mean Platelet Volume 9.4 fL (9.4-12.4); Monocytes Absolute Auto 0.6 X10*3/uL (0.1-1.2); Monocytes Percent Auto 8.1 % (2-11); Neutrophils Absolute Auto 5.9 x10*3/uL (2.0-8.3); Neutrophils Percent Auto 73.8 % (45-73); Platelet Count 274 X10*3/uL (160-400); Red Blood Count 4.32 X10*6/uL (4.60-5.80); Red Cell Distribution Width 13.6 % (11.0-16.0); White Blood Count 7.9 X10*3/uL (4.8-10.8)
[2025-03-10 13:59] LABS: Alanine Aminotransferase 51 U/L (0-40); Albumin Level 4.1 g/dL (3.5-5.0); Alkaline Phosphatase 94 U/L (39-117); Anion Gap 15 (12-20); Aspartate Amino Transferase 33 U/L (5-37); Bilirubin Direct 0.3 mg/dL (0.0-0.5); Blood Urea Nitrogen 12 mg/dL (9-16); Calcium 9.3 mg/dL (8.4-10.2); Carbon Dioxide 23 mmol/L (22-29); Chloride 110 mmol/L (96-108); Creatinine Clr Calc Pharmacy 70.4; Estimated Glomerular Filt Rate > 60; Glucose Random 109 mg/dL (60-115); Potassium 3.6 mmol/L (3.3-5.1); Sodium 144 mmol/L (135-145)
[2025-03-10 14:04] LABS: B Type Natriuretic Peptide 1107 pg/mL (<100); Troponin-I High Sensitivity 27.8 ng/L (<3.5-35.0)
[2025-03-10 14:27] LABS: Influenza A PCR NEGATIVE (Negative); Influenza B PCR NEGATIVE (Negative); Resp Syncy Virus RNA Qual PCR NEGATIVE (Negative); SARS COV2 PCR INHOUSE NEGATIVE (Negative)
--- OUTSIDE RECORDS SUMMARY | 2025-03-10 15:43 | XMS_ITS | Clinical Summary ---
Author Organization [facility] ity Address [address] [place] [address] Care Team Providers Care Internet Marketing Coordinator Name Role Phone Unavailable Primary Care Provider [...] - 2023-2 5 season) 2024 Influenza Vaccine (Season Ended) 2025 RSV Immunization Adult Patie nts (1 - 1-dose 75+ series) 2034 HIB [...] age to complete this topic Meningococcal B Vaccine Aged Out No l onger eligible based on patient's age to complete [...]
[2025-03-10 15:46] LABS: Lactic Acid 2.5 mmol/L (0.5-2.0)
[2025-03-10] MEDS: amLODIPine Besylate 5 MG TABLET PO (15:46)
[2025-03-10] MEDS: Doxycycline Hyclate 100 MG in 0.9 % Sodium Chloride 250 ML 166.67 MG IV (15:47)
[2025-03-10] MEDS: cefTRIAXone sodium 1 GM VIAL IVPUSH (15:47)
[2025-03-10] MEDS: Lactated Ringers 500 ML 999 ML IV (15:52)
--- NOTE | 2025-03-10 15:59 | PM.IMHP ---
History of Present Illness Date of Service: 03/10/25 Chief Complaint: sob 64M PMH HTN, smoking, moderate alcohol use, presented with sob. Patient reports 2 months of worsening shortness of breath. Positive orthopnea, positive paroxysmal nocturnal dyspnea. Denies any fever or chills. Reports a dry cough. Denies sick contacts. Denies chest pain. Denies weight gain or edema. Tried course of steroids with no improvement. In ED noted to be hypertensive, tachypneic, tachycardic. Chest x-ray with right lower lobe opacity. BNP elevated. Review of Systems Review of Systems: Yes all other systems are reviewed and are negative [facility] Medical History Diverticulosis Smoker Hx of renal calculi Cervical radiculopathy Elevated cholesterol HTN (hypertension) Family History Father Prostate cancer Mother Bone cancer Surgical History Hx of colonoscopy Social History Housing: House Alcohol intake: current Alcohol intake frequency: a few times a month Patient Tobacco Use Status: Current everyday Tobacco user Cigarettes Per Day: 10 Years Smoked: 45 e-Cigarette/Vaping Use: Never Used Second Hand Smoke Exposure: No Advance Directives: No Advance Directives Information Provided: Yes Current occupational status: employed Cognitive needs: No Hearing needs: No Vision needs: No Meds Allergies Allergy/AdvReac Type Severity Reaction Status Date / Time lisinopril Allergy Intermediate Muscle Pain Verified 03/10/25 13:10 Active Medications: Current Medications Acetaminophen (Acetaminophen 325 Mg Tablet) 650 mg PO Q6H PRN PRN Reason: Pain, Mild 1-3,fever,headache Amlodipine Besylate (Amlodipine Besylate 5 Mg Tablet) 5 mg PO DAILY FREYA; Protocol Azithromycin (Azithromycin 500 Mg Tablet) 500 mg PO Q24H FREYA Calcium Carbonate (Calcium Carbonate 750 Mg Tab.Chew) 750 mg PO Q4H PRN PRN Reason: Heartburn Ceftriaxone Sodium (Ceftriaxone Sodium 1 Gm Vial) 1 gm IVPUSH Q24H FREYA Enoxaparin Sodium (Enoxaparin Sodium 40 Mg/0.4 Ml Syringe) 40 mg SUBCUT Q24H FREYA Furosemide (Furosemide 40 Mg/4 Ml Vial) 40 mg IVPUSH BID@0900,1800 FREYA; Protocol Doxycycline Hyclate 100 mg/ (Sodium Chloride) 250 mls @ 166.67 mls/hr IV ONCE ONE Stop: 03/10/25 16:23 Last Admin: 03/10/25 15:47 Dose: 166.67 mls/hr Losartan Potassium (Losartan Potassium 25 Mg Tablet) 25 mg PO DAILY FREYA; Protocol Magnesium Hydroxide (Milk Of Magnesia 30 Ml Oral.Susp) 30 ml PO DAILY PRN PRN Reason: Constipation Melatonin (Melatonin 3 Mg Tablet) 6 mg PO BEDTIME PRN PRN Reason: Insomnia Sodium Chloride (0.9 % Sodium Chloride Flush 3 Ml Syringe) 3 ml IVFLUSH QSHIFT FREYA Physical Exam Vital Signs and Narrative: Vital Signs: Last Vital Signs Temp 98.8 F 03/10/25 14:45 Pulse 108 H 03/10/25 14:45 Resp 24 H 03/10/25 14:45 BP 173/104 H 03/10/25 15:46 Pulse Ox 98 03/10/25 14:45 O2 Del Method Room Air 03/10/25 14:45 BMI result Body Mass Index 28.8 General: AO X 3, no acute distress Resp: Right basilar crackles, no accessory muscles used CVS: S1,S2,RRR, no edema GI: soft, non tender, non distended Neuro: motor grossly intact, alert Psych: appropriate affect, appropriate insight Results Labs 03/10/25 13:38 03/10/25 13:38 Labs: Laboratory Results - last 24 hr 03/10/25 03/10/25 13:38 15:09 MCV 89.4 MCH 31.3 MCHC 35.0 RDW 13.6 Plt Count 274 MPV 9.4 Immature Gran % (Auto) 0.3 Neut % (Auto) 73.8 H Lymph % (Auto) 16.2 L [place] % (Auto) 8.1 Eos % (Auto) 1.1 Baso % (Auto) 0.5 Lymph # (Auto) 1.3 [place] # (Auto) 0.6 Eos # (Auto) 0.1 Baso # (Auto) 0.0 Abs Immat Gran (auto) 0.02 Absolute Neuts (auto) 5.9 Absolute Nucleated RBC 0.000 Nucleated RBC % (auto) 0.0 Anion Gap 15 Estim Creat Clear Calc 70.4 Estimated GFR > 60 Random Glucose 109 Lactic Acid 2.5 H* Calcium 9.3 Magnesium 2.0 Total Bilirubin 1.0 Direct Bilirubin 0.3 AST 33 ALT 51 H Alkaline Phosphatase 94 B-Natriuretic Peptide 1107 H Total Protein 7.0 Albumin 4.1 Influenza Type A (PCR) NEGATIVE Influenza Type B (PCR) NEGATIVE RSV RNA Qual (PCR) NEGATIVE SARS-CoV-2 RNA (RT-PCR) NEGATIVE Imaging Radiologist's Impressions: Impressions Chest X-Ray 03/10/25 13:11 IMPRESSION: Right lower lobe pneumonia with an associated small pleural effusion. Follow-up is recommended to document resolution. Electronically signed by: Neeraj Villeda MD 03/10/2025 02:15 PM EDT RP Assessment and Plan (1) Congestive heart failure: Status: Acute Plan 64M PMH HTN, smoking, moderate alcohol use, presented with sob dyspnea right lower lobe opacity favors bacterial pneumonia - no sepsis, acute lactic acidosis due to albuterol, tachycardia due to albuterol, tachypneic due to shortness of breath will treat empirically with ceftriaxone and azithromycin appears to also have acute CHF unspecified - IV Lasix, check echo uncontrolled hypertension due to noncompliance, starting amlodipine and losartan moderate alcohol use monitor on CIWA DVT prophylaxis with Lovenox Full Code Given degree of dyspnea, uncontrolled blood pressure need for IV diuresis expected require at least 2 midnights inpatient Quality Stroke Does the patient have a stroke diagnosis?: No VTE Prior VTE?: No VTE Risk Level:: Medical - moderate - high VTE Device Contraindication: Treatment Not Indicated VTE Drug Contraindication: N/A - Med Ordered
[2025-03-10 16:21] LABS: Cancel Lactic Acid Canceled
[2025-03-10 16:22] LABS: Reflex Lactate? No addnl Lactic Acid
--- NOTE | 2025-03-10 16:52 | PHA.MEDREC ---
Addendum entered by Chin Aldridge 03/10/25 17:40: reviewed Original Note: Pharmacy Consult ? Medication Reconciliation Pharmacy has completed the medication reconciliation. Spoke with patient and he was able to confirmed what he is taking for medications. Patient has on hand an ProAir (Albuterol inhaler) that he states he got from a friend, due to his other one running out, that the patient uses as needed. He also confirmed he alternates taking Tylenol 325mg tabs 2 as needed and Ibuprofen 200mg 2 tabs as needed for pain. He stats he takes a Centrum Silver Men's tablet once a day for scheduled medications but cannot remember if he took it yesterday or not.
[2025-03-10] MEDS: Losartan Potassium 25 MG TABLET PO (16:56)
[2025-03-10] MEDS: Azithromycin 500 MG TABLET PO (16:56)
[2025-03-10 17:15] LABS: Appearance Urine Clear; Color Urine Yellow; Glucose Urine UA Negative (Negative); Leukocyte Esterase Urine Negative (Negative); Nitrite Urine Negative (Negative); Specific Gravity - Urine 1.025 (1.005-1.025); UMIC TRIGGER UACC YES; Urine Blood Negative (Negative); Urine Ketones Trace mg/dL (Negative); Urine Protein 30 (1+) mg/dL (Neg-Trace)
[2025-03-10] MEDS: Furosemide 40 MG/4 ML VIAL IVPUSH (17:37)
[2025-03-10 17:55] LABS: Bacteria Urine None Seen (None Seen); Hyaline Casts Urine 0-2 /LPF (0-2); RBC Urine 0-2 /HPF (0-2); Squamous Epithelial Cell Urine 0-2 /HPF (0-2); WBC Urine 0-5 /HPF (0-5)
[2025-03-11] VITALS (7 sets, daily range): BP systolic 119–167; BP diastolic 81–98; PULSE 87–99; RESP 16–20; TEMP 36.2–37; O2SAT 96–100; BMI 28.5
--- NOTE | 2025-03-11 07:00 | CA_ITS ---
Transthoracic Echocardiogram Patient (Last, First, Middle): Pablo Flores J Gender: Male Date of : 1960 Age: 64 Procedure Date: 03/11/2025 Procedure Type: Transthoracic [place] [facility] [place]: 170.18 cm Weight: 83.46 kg BSA: 1.95 m2 Heart Rate: bpm BP: 167 / 98 mmHg Candy Vendor: AJ/MILY Referring MD: Maik Reddy MD Symptoms: chf Study Quality: Adequate w/contrast ECG Rhythm: Sinus Conclusions: - The left ventricular systolic function is moderately decreased. The calculated ejection fraction is 35% by biplane method. - Evidence suggests grade II (moderate) diastolic dysfunction. - There is moderate global hypokinesis. - The basal inferior and mid inferior segments are akinetic. - There is moderate calcification of the aortic valve. - There is moderate mitral annular calcification. Findings Procedure Information Contrast agent, definity, is being given per protocol without apparent complications. Left Ventricle Moderately increased left ventricular cavity size. There is normal left ventricular wall thickness. The left ventricular systolic function is moderately decreased. The calculated ejection fraction is 35% by biplane method. There is moderate global hypokinesis. Evidence suggests grade II (moderate) diastolic dysfunction. Wall Motion Rest Echo Findings The basal inferior and mid inferior segments are akinetic. Right Ventricle Mildly increased right ventricular cavity size. There is mildly decreased right ventricular systolic function. Atria Both atria are normal in size. Aortic Valve There is moderate calcification of the aortic valve. There is no aortic valve regurgitation. No significant aortic stenosis. Mitral Valve There is mild anterior mitral leaflet thickening. There is moderate mitral annular calcification. There is trace mitral valve regurgitation. There is no mitral valve stenosis. Pulmonic Valve The pulmonic valve is likely normal. Great Vessels The asc aorta and aortic arch are normal in size. Venous The inferior vena cava is mildly dilated and collapses greater than 50% with inspiration. Pericardium/Pleural There is no evidence of pericardial effusion. Prior Study Comparison No prior study available for comparison. Measurements 2D Linear Measurements IVSd: 0.93 0.6-0.9/0.6-1.0 cm LVIDd: 6.42 3.9-5.3/4.2-5.9 cm LVIDd Index: 3.29 2.4-3.2/2.2-3.1 cm/m2 LVIDs: 5.56 2.0-3.6 cm LVPWd: 1.09 0.7-1.1 cm LA Diam: 3.60 2.7-3.8/3.0-4.0 cm LAIDs Index: 1.85 1.5-2.3 cm/m2 LV Mass: 350.29 67-162/88-224 g LV Mass Index: 179.64 43-95/49-115 g/m2 LVOT Diam: 2.60 3.0+(-)1.3 cm 2D Systolic Function EF 4C: 40.20 >55% EF 2C: 26.10 >55% EF BiP: 34.90 >55% Mitral Valve MV VTI: 0.28 MV Pk Reji: 1.30 MV Mn Reji: 0.72 MV Pk Grad: 7.00 MV Mn Grad: 3.00 MV Pk E: 1.19 MV PK A: 0.83 MV Decel Time: 145.00 E/A: 1.40 E'Lateral: 3.15 E'Medial: 2.48 E/E' Med: 48.00 E/E' Lat: 37.80 PHT: 42.00 MVA PHT: 5.24 MVA Continuity: 2.61 Decel [place]: 8.21 Aortic Valve AoV Pk Reji: 1.97 AoV Mn Reji: 1.50 AoV VTI: 0.34 AoV Pk Grad: 16.00 Aov Mn Grad: 10.00 FAM Cont.VTI: 2.17 LVOT LVOT Pk Reji: 0.84 LVOT Mn Reji: 0.61 LVOT VTI: 0.14 LVOT Pk Grad: 3.00 LVOT Mn Grad: 2.00 LVOT Diam: 2.60 LVOT Area: 5.31 Diastolic Function MV Pk E: 1.19 MV Pk A: 0.83 E/A: 1.40 E'Medial: 2.48 E/E' Med: 48.00 E' Laterial: 3.15 E/E' Lat: 37.80 Right Ventricle TAPSE (mm): 15.20 TVS' Reji: 10.70 Tricuspid Valve RA Press: 8.00 Great Vessels Aorta Sinus of Valsalva: 3.60 2.0-3.5 cm Ao Asc: 3.80 2.1-3.4 cm Ao Arch: 3.40 Pulmonary Valve PV Pk Reji: 0.79 Peak PV Grad: 2.00 Updated in Other Vendor System with Status of Final Santhosh Ruvalcaba MD electronically signed on 03/12/2025 12:24:20 PM with status of Final
[2025-03-11 07:15] LABS: Hematocrit 39.2 % (42.0-52.0); Hemoglobin 13.3 g/dl (14.0-18.0); Mean Corpuscular HGB Conc 33.9 g/dl (31.0-36.0); Mean Corpuscular Hemoglobin 30.8 pg (27.0-33.0); Mean Corpuscular Volume 90.7 fL (80.0-98.0); Mean Platelet Volume 9.8 fL (9.4-12.4); Platelet Count 255 X10*3/uL (160-400); Red Blood Count 4.32 X10*6/uL (4.60-5.80); Red Cell Distribution Width 13.6 % (11.0-16.0); White Blood Count 8.5 X10*3/uL (4.8-10.8)
[2025-03-11 07:26] LABS: Anion Gap 12 (12-20); Blood Urea Nitrogen 13 mg/dL (9-16); Calcium 8.8 mg/dL (8.4-10.2); Carbon Dioxide 26 mmol/L (22-29); Chloride 107 mmol/L (96-108); Creatinine Clr Calc Pharmacy 65.6; Estimated Glomerular Filt Rate > 60; Glucose Random 106 mg/dL (60-115); Magnesium 1.9 mg/dL (1.6-2.6); Potassium 3.2 mmol/L (3.3-5.1); Sodium 142 mmol/L (135-145)
--- NOTE | 2025-03-11 08:56 | HO.PM.IMPN ---
Subjective Subjective Date of Service: 03/11/25 Interval History: some improvement Physical Exam Vital Signs: Vital Signs: Last Vital Signs Temp 97.9 F 03/11/25 07:11 Pulse 91 03/11/25 07:11 Resp 20 03/11/25 07:11 BP 167/98 H 03/11/25 07:11 Pulse Ox 97 03/11/25 07:11 O2 Del Method Nasal Cannula 03/11/25 07:11 O2 Flow Rate 2 03/11/25 07:11 BMI result Body Mass Index 28.8 General: AO X 3, no acute distress Resp: Right basilar crackles, no accessory muscles used CVS: S1,S2,RRR, no edema GI: soft, non tender, non distended Neuro: motor grossly intact, alert Psych: appropriate affect, appropriate insight Objective Data Active Medications Acetaminophen (Acetaminophen 325 Mg Tablet) 650 mg PO Q6H PRN PRN Reason: Pain, Mild 1-3,fever,headache Amlodipine Besylate (Amlodipine Besylate 5 Mg Tablet) 5 mg PO DAILY [facility]; Protocol Azithromycin (Azithromycin 500 Mg Tablet) 500 mg PO Q24H [facility] Last Admin: 03/10/25 16:56 Dose: 500 mg Documented By: JANNA Calcium Carbonate (Calcium Carbonate 750 Mg Tab.Chew) 750 mg PO Q4H PRN PRN Reason: Heartburn Ceftriaxone Sodium (Ceftriaxone Sodium 1 Gm Vial) 1 gm IVPUSH Q24H [facility] Enoxaparin Sodium (Enoxaparin Sodium 40 Mg/0.4 Ml Syringe) 40 mg SUBCUT Q24H [facility] Furosemide (Furosemide 40 Mg/4 Ml Vial) 40 mg IVPUSH BID@0900,1800 [facility]; Protocol Last Admin: 03/10/25 17:37 Dose: 40 mg Documented By: JANNA Losartan Potassium (Losartan Potassium 25 Mg Tablet) 25 mg PO DAILY [facility]; Protocol Last Admin: 03/10/25 16:56 Dose: 25 mg Documented By: JANNA Magnesium Hydroxide (Milk Of Magnesia 30 Ml Oral.Susp) 30 ml PO DAILY PRN PRN Reason: Constipation Melatonin (Melatonin 3 Mg Tablet) 6 mg PO BEDTIME PRN PRN Reason: Insomnia Potassium Chloride (Potassium Chloride Er 20 Meq Tab.Er.Prt) 40 meq PO ONCE ONE Stop: 03/11/25 08:56 Sodium Chloride (0.9 % Sodium Chloride Flush 3 Ml Syringe) 3 ml IVFLUSH QSHIFT [facility] Last Admin: 03/11/25 01:54 Dose: Not Given Documented By: JAMES Non-Admin Reason: Not In Room Labs 03/11/25 06:57 03/11/25 06:57 Labs: Laboratory Results - last 24 hr 03/10/25 03/10/25 03/10/25 13:38 15:09 17:07 MCV 89.4 MCH 31.3 MCHC 35.0 RDW 13.6 Plt Count 274 MPV 9.4 Immature Gran % (Auto) 0.3 Neut % (Auto) 73.8 H Lymph % (Auto) 16.2 L [place] % (Auto) 8.1 Eos % (Auto) 1.1 Baso % (Auto) 0.5 Lymph # (Auto) 1.3 [place] # (Auto) 0.6 Eos # (Auto) 0.1 Baso # (Auto) 0.0 Abs Immat Gran (auto) 0.02 Absolute Neuts (auto) 5.9 Absolute Nucleated RBC 0.000 Nucleated RBC % (auto) 0.0 Anion Gap 15 Estim Creat Clear Calc 70.4 Estimated GFR > 60 Random Glucose 109 Lactic Acid 2.5 H* Calcium 9.3 Magnesium 2.0 Total Bilirubin 1.0 Direct Bilirubin 0.3 AST 33 ALT 51 H Alkaline Phosphatase 94 B-Natriuretic Peptide 1107 H Total Protein 7.0 Albumin 4.1 Urine Color Yellow Urine Appearance Clear Urine pH 6.0 Ur Specific [place] 1.025 Urine Protein 30 (1+) H Urine Glucose (UA) Negative Urine Ketones Trace Urine Blood Negative Urine Nitrite Negative Ur Leukocyte Esterase Negative Urine RBC 0-2 Urine WBC 0-5 Ur Squamous Epith Cells 0-2 Urine Bacteria None Seen Hyaline Casts 0-2 Influenza Type A (PCR) NEGATIVE Influenza Type B (PCR) NEGATIVE RSV RNA Qual (PCR) NEGATIVE SARS-CoV-2 RNA (RT-PCR) NEGATIVE 03/11/25 06:57 MCV 90.7 MCH 30.8 MCHC 33.9 RDW 13.6 Plt Count 255 MPV 9.8 Immature Gran % (Auto) Neut % (Auto) Lymph % (Auto) [place] % (Auto) Eos % (Auto) Baso % (Auto) Lymph # (Auto) [place] # (Auto) Eos # (Auto) Baso # (Auto) Abs Immat Gran (auto) Absolute Neuts (auto) Absolute Nucleated RBC 0.000 Nucleated RBC % (auto) 0.0 Anion Gap 12 Estim Creat Clear Calc 65.6 Estimated GFR > 60 Random Glucose 106 Lactic Acid Calcium 8.8 Magnesium 1.9 Total Bilirubin Direct Bilirubin AST ALT Alkaline Phosphatase B-Natriuretic Peptide Total Protein Albumin Urine Color Urine Appearance Urine pH Ur Specific [place] Urine Protein Urine Glucose (UA) Urine Ketones Urine Blood Urine Nitrite Ur Leukocyte Esterase Urine RBC Urine WBC Ur Squamous Epith Cells Urine Bacteria Hyaline Casts Influenza Type A (PCR) Influenza Type B (PCR) RSV RNA Qual (PCR) SARS-CoV-2 RNA (RT-PCR) Assessment and Plan (1) Congestive heart failure: Status: Acute Plan 64M PMH HTN, smoking, moderate alcohol use, presented with sob acute hypoxic respiratory failure due to - pneumonia less likely but will continue rocephin/azithro for now - no sepsis appears to have acute CHF unspecified - IV Lasix, check echo uncontrolled hypertension due to noncompliance, started amlodipine and losartan moderate alcohol use monitor on CIWA DVT prophylaxis with Lovenox Full Code reason for continued hospitalization:iv diuresis Quality Stroke Does the patient have a stroke diagnosis?: No VTE Prior VTE?: No VTE Risk Level:: Medical - moderate - high VTE Device Contraindication: Treatment Not Indicated VTE Drug Contraindication: N/A - Med Ordered
[2025-03-11] MEDS: amLODIPine Besylate 5 MG TABLET PO (08:59)
[2025-03-11] MEDS: Losartan Potassium 25 MG TABLET PO (08:59)
[2025-03-11] MEDS: Furosemide 40 MG/4 ML VIAL IVPUSH ×2 (08:59→17:07)
[2025-03-11] MEDS: Enoxaparin Sodium 40 MG/0.4 ML SYRINGE SUBCUT (09:00)
[2025-03-11] MEDS: Potassium Chloride ER 20 MEQ TAB.ER.PRT 40 MEQ PO (09:10)
--- NOTE | 2025-03-11 09:21 | MHC.CM.PN ---
CM met with Patient at bedside and addressed IMM with him, providing Patient with the original and a copy has been placed on the chart. Patient lives alone in a house and required no services nor DME [employer]. Home/self care is Patient's goal and CM has initiated and will follow for dc planning. Patient has no PCP(PCP Brochure to be provided) and his Sister/Samira is his HCP. Patient's car is here for transport to home at time of dc.
[2025-03-11] MEDS: 0.9 % Sodium Chloride Flush 3 ML SYRINGE IVFLUSH ×3 (09:36→20:39)
[2025-03-11] MEDS: Azithromycin 500 MG TABLET PO (17:07)
[2025-03-11] MEDS: cefTRIAXone sodium 1 GM VIAL IVPUSH (17:07)
[2025-03-11] MEDS: Melatonin 3 MG TABLET 6 MG PO (20:39)
[2025-03-12 03:46] VITALS: BP 163/92; PULSE 86; RESP 12; TEMP 36.3; O2SAT 99
[2025-03-12 06:00] VITALS: BMI 22.1
[2025-03-12 07:14] VITALS: BP 135/77; PULSE 82; RESP 20; TEMP 36.9; O2SAT 99
[2025-03-12 08:29] LABS: Hematocrit 39.6 % (42.0-52.0); Hemoglobin 13.4 g/dl (14.0-18.0); Mean Corpuscular HGB Conc 33.8 g/dl (31.0-36.0); Mean Corpuscular Volume 91.7 fL (80.0-98.0); Mean Platelet Volume 10.1 fL (9.4-12.4); Platelet Count 265 X10*3/uL (160-400); Red Blood Count 4.32 X10*6/uL (4.60-5.80); Red Cell Distribution Width 13.5 % (11.0-16.0); White Blood Count 8.4 X10*3/uL (4.8-10.8)
[2025-03-12 08:45] LABS: Anion Gap 13 (12-20); Blood Urea Nitrogen 17 mg/dL (9-16); Calcium 9.2 mg/dL (8.4-10.2); Carbon Dioxide 28 mmol/L (22-29); Chloride 103 mmol/L (96-108); Creatinine Clr Calc Pharmacy 51.2; Estimated Glomerular Filt Rate 55; Glucose Random 96 mg/dL (60-115); Potassium 3.3 mmol/L (3.3-5.1); Sodium 141 mmol/L (135-145)
[2025-03-12] MEDS: Losartan Potassium 25 MG TABLET PO (08:51)
[2025-03-12] MEDS: amLODIPine Besylate 5 MG TABLET PO (08:51)
[2025-03-12] MEDS: Furosemide 40 MG/4 ML VIAL IVPUSH (08:52)
[2025-03-12] MEDS: 0.9 % Sodium Chloride Flush 3 ML SYRINGE IVFLUSH (08:52)
[2025-03-12] MEDS: Enoxaparin Sodium 40 MG/0.4 ML SYRINGE SUBCUT (08:52)
--- NOTE | 2025-03-12 10:21 | HO.PM.IMPN ---
Subjective Subjective Date of Service: 03/12/25 Interval History: improved Physical Exam Vital Signs: Vital Signs: Last Vital Signs Temp 98.5 F 03/12/25 07:14 Pulse 82 03/12/25 07:14 Resp 20 03/12/25 07:14 BP 135/77 03/12/25 07:14 Pulse Ox 99 03/12/25 07:14 O2 Del Method Nasal Cannula 03/12/25 07:14 O2 Flow Rate 2 03/12/25 07:14 BMI result Body Mass Index 22.1 General: AO X 3, no acute distress Resp: CTA bilateral, no accessory muscles used CVS: S1,S2,RRR GI: soft, non tender, non distended Neuro: motor grossly intact, alert Psych: appropriate affect, appropriate insight Objective Data Active Medications Acetaminophen (Acetaminophen 325 Mg Tablet) 650 mg PO Q6H PRN PRN Reason: Pain, Mild 1-3,fever,headache Amlodipine Besylate (Amlodipine Besylate 5 Mg Tablet) 5 mg PO DAILY [facility]; Protocol Last Admin: 03/12/25 08:51 Dose: 5 mg Documented By: JOE Azithromycin (Azithromycin 500 Mg Tablet) 500 mg PO Q24H [facility] Last Admin: 03/11/25 17:07 Dose: 500 mg Documented By: JOE Calcium Carbonate (Calcium Carbonate 750 Mg Tab.Chew) 750 mg PO Q4H PRN PRN Reason: Heartburn Ceftriaxone Sodium (Ceftriaxone Sodium 1 Gm Vial) 1 gm IVPUSH Q24H [facility] Last Admin: 03/11/25 17:07 Dose: 1 gm Documented By: JOE Enoxaparin Sodium (Enoxaparin Sodium 40 Mg/0.4 Ml Syringe) 40 mg SUBCUT Q24H [facility] Last Admin: 03/12/25 08:52 Dose: 40 mg Documented By: JOE Furosemide (Furosemide 40 Mg/4 Ml Vial) 40 mg IVPUSH BID@0900,1800 [facility]; Protocol Last Admin: 03/12/25 08:52 Dose: 40 mg Documented By: JOE Losartan Potassium (Losartan Potassium 25 Mg Tablet) 25 mg PO DAILY [facility]; Protocol Last Admin: 03/12/25 08:51 Dose: 25 mg Documented By: JOE Magnesium Hydroxide (Milk Of Magnesia 30 Ml Oral.Susp) 30 ml PO DAILY PRN PRN Reason: Constipation Melatonin (Melatonin 3 Mg Tablet) 6 mg PO BEDTIME PRN PRN Reason: Insomnia Last Admin: 03/11/25 20:39 Dose: 6 mg Documented By: RINA Sodium Chloride (0.9 % Sodium Chloride Flush 3 Ml Syringe) 3 ml IVFLUSH QSHIFT [facility] Last Admin: 03/12/25 08:52 Dose: 3 ml Documented By: RICCIAV Labs 03/12/25 06:47 03/12/25 06:47 Labs: Laboratory Results - last 24 hr 03/12/25 06:47 MCV 91.7 MCH 31.0 MCHC 33.8 RDW 13.5 Plt Count 265 MPV 10.1 Absolute Nucleated RBC 0.000 Nucleated RBC % (auto) 0.0 Anion Gap 13 Estim Creat Clear Calc 51.2 Estimated GFR 55 Random Glucose 96 Calcium 9.2 Magnesium 2.0 Microbiology Microbiology Results: Microbiology 03/10/25 15:09 Blood Culture - Preliminary Blood - Venous No growth after 24 hours. 03/10/25 15:09 Blood Culture - Preliminary Blood - Venous No growth after 24 hours. Assessment and Plan (1) Congestive heart failure: Status: Acute Plan 64M PMH HTN, smoking, moderate alcohol use, presented with sob acute hypoxic respiratory failure due to - acute CHF unspecified - IV Lasix - will change to po, check echo pneumonia less likely will dc antibiotics uncontrolled hypertension due to noncompliance, started amlodipine and losartan moderate alcohol use monitor on CIWA DVT prophylaxis with Lovenox Full Code reason for continued hospitalization:echo Quality Stroke Does the patient have a stroke diagnosis?: No VTE Prior VTE?: No VTE Risk Level:: Medical - moderate - high VTE Device Contraindication: Treatment Not Indicated VTE Drug Contraindication: N/A - Med Ordered
[2025-03-12 10:57] VITALS: BP 116/73; PULSE 86; RESP 18; TEMP 37; O2SAT 94
[2025-03-12] MEDS: Potassium Chloride ER 20 MEQ TAB.ER.PRT 40 MEQ PO (11:00)
--- NOTE | 2025-03-12 13:03 | MHC.CM.PN ---
Patient has been medically cleared for dc to home today, self care. Last IMM was addressed yesterday.
--- NOTE | 2025-03-12 13:03 | PM.DS ---
DS: Providers Provider Date of Service: 03/12/25 Date of admission: 03/10/25 15:38 Date of discharge: 03/12/25 Primary care physician: None Physician DS: Diagnosis Discharge Diagnosis (1) Congestive heart failure: Status: Acute DS: Summary Hospital Course Hospital Course: from initial hpi: 64M PMH HTN, smoking, moderate alcohol use, presented with sob. Patient reports 2 months of worsening shortness of breath. Positive orthopnea, positive paroxysmal nocturnal dyspnea. Denies any fever or chills. Reports a dry cough. Denies sick contacts. Denies chest pain. Denies weight gain or edema. Tried course of steroids with no improvement. In ED noted to be hypertensive, tachypneic, tachycardic. Chest x-ray with right lower lobe opacity. BNP elevated. hospital course: Patient was admitted for acute hypoxic respiratory failure. Initially empirically treated for pneumonia but this has been ruled out. Treated with IV Lasix for acute CHF. Echo revealed both diastolic and systolic dysfunction with grade 2 diastolic and EF of 35%. This is a new finding. Was started on carvedilol, Diovan, asa, statin and transitioned to oral Lasix on discharge. For uncontrolled hypertension due to noncompliance has improved with restarting of medications. Shortness of breath resolved and patient is weaned to room air. He will follow up with Cardiology as outpatient. For moderate alcohol use patient is educated on abstinence and did not show any signs of withdrawal. Time Attestation Discharge Coordination Time (in mins): 34 Quality: Safe Use of Opioids Does Pt have an Active Cancer Diagnosis on the Problem List?: No Quality: Stroke Does the patient have a stroke diagnosis?: No Physical Exam Vital Signs: Vital Signs: Last Vital Signs Temp 98.6 F 03/12/25 10:57 Pulse 86 03/12/25 10:57 Resp 18 03/12/25 10:57 BP 116/73 03/12/25 10:57 Pulse Ox 94 03/12/25 10:57 O2 Del Method Room Air 03/12/25 10:57 O2 Flow Rate 2 03/12/25 07:14 BMI result Body Mass Index 22.1 General: AO X 3, no acute distress Resp: CTA bilateral, no accessory muscles used CVS: S1,S2,RRR GI: soft, non tender, non distended Neuro: motor grossly intact, alert Psych: appropriate affect, appropriate insight DS: Data Data Completed and Pending Labs on day of discharge: Laboratory Results - last 24 hr 03/12/25 06:47 WBC 8.4 RBC 4.32 L Hgb 13.4 L Hct 39.6 L MCV 91.7 MCH 31.0 MCHC 33.8 RDW 13.5 Plt Count 265 MPV 10.1 Absolute Nucleated RBC 0.000 Nucleated RBC % (auto) 0.0 Sodium 141 Potassium 3.3 Chloride 103 Carbon Dioxide 28 Anion Gap 13 BUN 17 H Creatinine 1.30 Estim Creat Clear Calc 51.2 Estimated GFR 55 Random Glucose 96 Calcium 9.2 Magnesium 2.0 Preliminary micro results at discharge 03/10/25 15:09 Blood Culture - Preliminary Blood - Venous No growth after 24 hours. 03/10/25 15:09 Blood Culture - Preliminary Blood - Venous No growth after 24 hours. Discharge Plan Discharge Anticipated Discharge Date/Time: 03/12/25 13:00 Patient Disposition: Home, Self-Care Discharge Diagnosis: chf Referrals: Physician,None [Primary Care Provider] - 1 Week Santhosh Ruvalcaba MD [Physician] - 1 Week (chf) Discharge Medications: New carvedilol [Coreg] 3.125 mg tablet 3.125 mg PO BID Qty: 90 0RF Rx Instructions: must administer with a meal/food valsartan [Diovan] 80 mg tablet 80 mg PO BID Qty: 180 0RF furosemide [Lasix] 20 mg tablet 20 mg PO DAILY Qty: 90 0RF aspirin 81 mg capsule 81 mg PO DAILY Qty: 90 0RF atorvastatin 40 mg tablet 40 mg PO BEDTIME Qty: 90 0RF Continued acetaminophen [Tylenol] 325 mg Tablet 650 mg PO Q4H PRN (Reason: Pain) Centrum Silver Men [id number] mcg Tablet 1 tab PO DAILY albuterol sulfate 90 mcg/actuation Hfa Aerosol Inhaler 2 puff INHALATION Q6H PRN (Reason: Shortness Of Breath Or Wheezing) Discontinued ibuprofen 200 mg Tablet 400 mg PO Q6H PRN (Reason: Pain) Discharge Orders: Discharge Order (Routine); Ordered 03/12/25 Ordered By: Maik Reddy Diet: Low salt diet Activity on Discharge: As tolerated Stand Alone Forms: Patient Portal Discharge page Print Language: [place] Care Plan Goals: manage chf Health Concerns: chf Plan of Treatment: started on lasix, coreg, diovan, asa, statin follow up with cardiology obtain pcp and follow up with them Assessment: see above Patient Instructions: Furosemide (By mouth), Losartan (By mouth), Carvedilol (By mouth)
--- NOTE | 2025-03-12 13:40 | PM.CNCAR ---
History of Present Illness History of Present Illness Date of Service: 03/12/25 Chief complaint: Chf, ? pna Narrative: This is a cardiology consultation regarding congestive heart failure. He is presenting with complaints of congestive heart failure. For the last few weeks, he has been having progressive shortness of breath. Orthopnea and PND. However, he states that when he is walking he is not feeling anything too different. Some dry cough. No anginal-type chest pains. It seems that he tried steroids with no improvement. Then presented to the ER various found to be hypertensive, tachycardic, tachypneic. Then thought to be in congestive heart failure and admitted. He has been treated for combination of uncontrolled hypertension/CHF. It seems that he has improved significantly and is ready for discharge. Overall, he states he is much better. He denies any prior history of cardiac issues. He admits to noncompliance and not seeing PCP regularly. Smoker and probably excessive alcohol use as well. Review of Systems Review of Systems: Yes all other systems are reviewed and are negative Constitutional: Constitutional: Reports as per HPI and Reports no additional constitutional complaints Eyes: Eyes: Reports as per HPI and Denies no additional eye complaints ENT: Denies system reviewed and no additional complaints, except as documented and Reports as per HPI Cardiovascular: Cardiovascular: Reports as per HPI, Reports no additional cardiovascular complaints, Denies acrocyanosis, Denies cool extremities, Denies chest pain, Denies leg edema, Denies lightheadedness, Denies palpitations and Reports dyspnea Respiratory: Respiratory: Reports as per HPI, Denies no additional respiratory complaints and Reports dyspnea Gastrointestinal: Gastrointestinal: Reports as per HPI and Denies no additional gastrointestinal complaints Genitourinary: Genitourinary: Reports no additional male genitourinary complaints and Reports as per HPI Musculoskeletal: Musculoskeletal: Reports no additional musculoskeletal complaints and Reports as per HPI Integumentary/Breasts: Skin/Breast: Reports system reviewed and no additional complaints, except as docu Neurologic: Reports system reviewed and no additional complaints, except as documented and Reports as per HPI Psychiatric: Psychiatric: Reports no additional psychiatric complaints and Reports as per HPI Endocrine: Endocrine: Reports no additional endocrine complaints, Reports as per HPI and Denies palpitations Hematologic/Lymphatic: Hematologic/Lymphatic: Reports no additional hematologic/lymphatic complaints and Reports as per HPI Allergic/Immunologic: Allergic/Immunologic: Reports no additional allergic/immunologic complaints and Reports as per HPI PMFSH Past Medical History Medical History Diverticulosis Smoker Hx of renal calculi Cervical radiculopathy Elevated cholesterol HTN (hypertension) Family History Family History Father Prostate cancer Mother Bone cancer Surgical History Surgical History Hx of colonoscopy Social History Social History Household Members: Other Household Members Other:: 5 friends Housing: House Do you presently have visiting nurse or other home services: No Alcohol intake: current Alcohol intake frequency: a few times a month Patient Tobacco Use Status: Former Tobacco user Tobacco use type: Cigarette Cigarettes Per Day: 10 Years Smoked: 45 e-Cigarette/Vaping Use: Never Used Second Hand Smoke Exposure: No service: No Current occupational status: employed Cognitive needs: No Hearing needs: No Vision needs: No Meds Allergies Allergy/AdvReac Type Severity Reaction Status Date / Time lisinopril Allergy Intermediate Muscle Pain Verified 03/10/25 13:10 Active Medications: Current Medications Acetaminophen (Acetaminophen 325 Mg Tablet) 650 mg PO Q6H PRN PRN Reason: Pain, Mild 1-3,fever,headache Amlodipine Besylate (Amlodipine Besylate 5 Mg Tablet) 5 mg PO DAILY [facility]; Protocol Last Admin: 03/12/25 08:51 Dose: 5 mg Calcium Carbonate (Calcium Carbonate 750 Mg Tab.Chew) 750 mg PO Q4H PRN PRN Reason: Heartburn Enoxaparin Sodium (Enoxaparin Sodium 40 Mg/0.4 Ml Syringe) 40 mg SUBCUT Q24H [facility] Last Admin: 03/12/25 08:52 Dose: 40 mg Furosemide (Furosemide 40 Mg Tablet) 40 mg PO DAILY [facility]; Protocol Losartan Potassium (Losartan Potassium 25 Mg Tablet) 25 mg PO DAILY [facility]; Protocol Last Admin: 03/12/25 08:51 Dose: 25 mg Magnesium Hydroxide (Milk Of Magnesia 30 Ml Oral.Susp) 30 ml PO DAILY PRN PRN Reason: Constipation Melatonin (Melatonin 3 Mg Tablet) 6 mg PO BEDTIME PRN PRN Reason: Insomnia Last Admin: 03/11/25 20:39 Dose: 6 mg Sodium Chloride (0.9 % Sodium Chloride Flush 3 Ml Syringe) 3 ml IVFLUSH QSHIFT [facility] Last Admin: 03/12/25 08:52 Dose: 3 ml Home Medications ?Medication ?Instructions ?Recorded ?Confirmed ?Last Taken ?Type acetaminophen 325 mg tablet 650 mg PO Q4H PRN Pain 03/10/25 03/10/25 Unknown History (Tylenol) albuterol sulfate 90 mcg/actuation 2 puff inhalation Q6H PRN 03/10/25 03/10/25 Unknown History aerosol inhaler Shortness Of Breath Or Wheezing [id number] 300 mcg-K 60 1 tab PO DAILY 03/10/25 03/10/25 1 Day Ago History mcg-lycop 600 mcg-lutein 300 mcg ~03/09/25 tablet (Centrum Silver Men) Physical Exam Vital Signs: Vital Signs: Last Vital Signs Temp 98.6 F 03/12/25 10:57 Pulse 86 03/12/25 10:57 Resp 18 03/12/25 10:57 BP 116/73 03/12/25 10:57 Pulse Ox 94 03/12/25 10:57 O2 Del Method Room Air 03/12/25 10:57 O2 Flow Rate 2 03/12/25 07:14 BMI result Body Mass Index 22.1 Const: General: comfortable and no acute distress Orientation/consciousness: patient oriented x3 HEENT: Other: Unremarkable Head: Yes normal to inspection Neck: Neck: Yes normal visual inspection Chest: Chest palpation & inspection: normal inspection of the chest Resp: Auscultation: clear to auscultation bilaterally Cardio: Palpation: normal PMI Heart sounds: S1 normal heart sound present, S2 normal heart sound present, no gallops, no murmurs and no rubs GI: Palpation (GI): Soft to palpation Back/Spine/Pelvis: Other: unremarkable Skin: General skin exam: no rashes or lesions noted Neuro: General: patient oriented x3 Extrem: General: Yes normal to inspection Psych: Mental Status: mental status grossly normal Objective Labs and Meds 03/12/25 06:47 03/12/25 06:47 Lab results: Laboratory Results - last 24 hr 03/12/25 06:47 WBC 8.4 RBC 4.32 L Hgb 13.4 L Hct 39.6 L MCV 91.7 MCH 31.0 MCHC 33.8 RDW 13.5 Plt Count 265 MPV 10.1 Absolute Nucleated RBC 0.000 Nucleated RBC % (auto) 0.0 Sodium 141 Potassium 3.3 Chloride 103 Carbon Dioxide 28 Anion Gap 13 BUN 17 H Creatinine 1.30 Estim Creat Clear Calc 51.2 Estimated GFR 55 Random Glucose 96 Calcium 9.2 Magnesium 2.0 ECG Interpretation: EKG with underlying sinus rhythm at 108/Min; cannot exclude old septal infarct; nonspecific QRS widening; normal FL and corrected QT. Assessment and Plan (1) Acute congestive heart failure: Status: Acute (2) Hypertensive urgency: Status: Acute Plan Unremarkable high sensitivity troponin. Cardiac BNP elevated at 1100. Chest CT scan reported have interstitial edema, small bilateral pleural effusions and moderate to advanced emphysema. Coronary artery disease. Ascending aortic size 4.2 cm. In the echocardiogram, LVEF is 35%. Moderate diastolic dysfunction. Inferior akinesis. Moderate aortic valve calcification and moderate mitral annular calcification. Overall, acute/subacute congestive heart failure and uncontrolled hypertension. Clinically seems much improved. Currently on amlodipine 5 mg, losartan 25 mg daily. Add carvedilol 3.125 b.i.d.. Low-dose diuretics. Aspirin/statins. Abstinence from smoking/alcohol. We will arrange follow up in the clinic. Procedures Date of Service Date of Service: 03/12/25
== END 2025-03-12 13:57 | disposition home or self-care (01) | DRG 291 ==
LOC: HO.ED 15:27 → HO.EDOVER 15:44 → HO.IMC 03-11 00:02
PROVIDERS: Physician Assistant; Admitting Provider Internal Medicine; Emergency Provider Emergency Medicine; Visit Provider Internal Medicine
DX: I11.0 Hypertensive heart disease with heart failure (principal); I50.41 Acute combined systolic (congestive) and diastolic (congestive) heart failure; J96.01 Acute respiratory failure with hypoxia; E87.21 Acute metabolic acidosis; J43.9 Emphysema, unspecified; I70.0 Atherosclerosis of aorta; I34.81 Nonrheumatic mitral (valve) annulus calcification; F10.20 Alcohol dependence, uncomplicated; Z20.822 Contact with and (suspected) exposure to COVID-19; F17.210 Nicotine dependence, cigarettes, uncomplicated; Z71.6 Tobacco abuse counseling; Z91.148 Patient's other noncompliance with medication regimen for other reason; Z91.199 Patient's noncompliance with other medical treatment and regimen due to unspecified reason; Z87.891 Personal history of nicotine dependence; Z79.899 Other long term (current) drug therapy
CPT/HCPCS: 0241U; 36415; 71046; 71250; 80048; 80076; 81001; 83605; 83735; 83880; 84484; 85025; 85027; 87040; 93005; 93306; 94640; 99285; J0696; J1271; J1650; J1938; J7120; Q9957

== ENCOUNTER → 2025-03-10 13:11 | Outpatient (BNV) | payer MEDICARE, SELFPAY | PROVIDERS: Admitting Provider Internal Medicine; Emergency Provider Emergency Medicine; Visit Provider Internal Medicine | DX: R00.0 Tachycardia, unspecified (principal) | CPT/HCPCS: 93010 ==

== ENCOUNTER → 2025-03-10 13:11 | Outpatient (BNV) | payer MEDICARE, SELFPAY | PROVIDERS: Emergency Provider Emergency Medicine; Visit Provider Radiology Diagnostic Radiology | DX: J90 Pleural effusion, not elsewhere classified (principal); J98.11 Atelectasis; J43.9 Emphysema, unspecified; I25.10 Atherosclerotic heart disease of native coronary artery without angina pectoris; J18.9 Pneumonia, unspecified organism | CPT/HCPCS: 71046; 71250 ==

== ENCOUNTER 2025-03-10 15:38 | Outpatient (BNV) | payer MEDICARE, SELFPAY | END 2025-03-11 07:00 | PROVIDERS: Admitting Provider Internal Medicine; Emergency Provider Emergency Medicine; Visit Provider Internal Medicine | DX: I42.8 Other cardiomyopathies (principal); I35.8 Other nonrheumatic aortic valve disorders; I34.81 Nonrheumatic mitral (valve) annulus calcification | CPT/HCPCS: 93306 ==

== ENCOUNTER → 2025-03-10 15:38 | Outpatient (BNV) | payer MEDICARE, SELFPAY | PROVIDERS: Admitting Provider Internal Medicine; Emergency Provider Emergency Medicine; Visit Provider Internal Medicine | DX: I50.9 Heart failure, unspecified (principal); I16.0 Hypertensive urgency | CPT/HCPCS: 99223 ==

== ENCOUNTER → 2025-03-10 15:38 | Outpatient (BNV) | payer MEDICARE, SELFPAY | PROVIDERS: Admitting Provider Internal Medicine; Emergency Provider Emergency Medicine; Visit Provider Internal Medicine | DX: I50.9 Heart failure, unspecified (principal); J96.01 Acute respiratory failure with hypoxia; J18.9 Pneumonia, unspecified organism | CPT/HCPCS: 99223; 99232 ==

== ENCOUNTER 2025-04-05 08:36 | Outpatient (AMB) | payer MEDICARE, SELFPAY ==
--- NOTE | 2025-04-05 08:52 | A.OFFVIS_ITS ---
Vital Signs 04/05/25 08:53 Height 5 ft 7 in Weight 178 lb 9.191 oz BMI 28.0 BP 140/70 H Blood Pressure Location Lt brachial Position Sitting Pulse 55 Pulse Source Pulse Oximeter Intake Visit Reasons: [facility] [place] d/c dr rosenbaum pt Allergies lisinopril Allergy (Intermediate, Verified 03/10/25 13:10) Muscle Pain Medication List - Last Reconciled 04/05/25 by Mitzy Rios NP-C acetaminophen (Tylenol) 650 mg PO Q4H PRN albuterol sulfate 90 mcg/actuation 2 puffs inhalation Q6H PRN aspirin 81 mg PO DAILY atorvastatin 40 mg PO BEDTIME carvedilol (Coreg) 3.125 mg PO BID furosemide (Lasix) 20 mg PO DAILY [id number] 242-22-505-300 mcg (Centrum Silver Men) 1 tab PO DAILY valsartan (Diovan) 80 mg PO BID HPI HPI [facility] [place] d/c dr rosenbaum pt: Details: Pablo is a 64-year-old male with past medical history of alcohol use, hypertension, hyperlipidemia who was recently admitted to [facility] with increased shortness of breath and treated for hypoxic respiratory failure and Congestive heart failure. An echocardiogram showed EF 35% with grade 2 diastolic dysfunction. He was diuresed and started on Lasix 40 mg daily. His blood pressure was elevated and he was put on carvedilol and valsartan. Today he reports he has been doing well since his hospital discharge. He states his breathing is back to normal. No PND, orthopnea or edema. No chest discomfort at rest or with activity. No heart palpitations, lightheadedness, presyncope, syncope. Compliant with all medications. He has been checking his home blood pressures and weight daily. His blood pressures have ranged 120s to 150s systolic. He says he does not drink alcohol routinely. Sister is on the phone listening at this visit. [facility] Medical History Diverticulosis Smoker Hx of renal calculi Cervical radiculopathy Elevated cholesterol HTN (hypertension) Surgical History Hx of colonoscopy Family History Father Prostate cancer Mother Bone cancer Social History Household Members: Other Household Members Other:: 5 friends Housing: House Do you presently have visiting nurse or other home services: No Alcohol intake: current Alcohol intake frequency: a few times a month Patient Tobacco Use Status: Former Tobacco user Tobacco use type: Cigarette Cigarettes Per Day: 10 Years Smoked: 45 e-Cigarette/Vaping Use: Never Used Second Hand Smoke Exposure: No service: No Current occupational status: employed Cognitive needs: No Hearing needs: No Vision needs: No Review of Systems Const All systems reviewed & are unremarkable except as noted in HPI and below Denies weakness ENT Denies dizziness Card Denies chest pain, Denies chest pain with activity, Denies syncope, Denies rapid heart rate, Denies pedal edema, Denies edema, Denies leg edema, Denies lightheadedness, Denies palpitations, Reports dyspnea, Denies dyspnea on exertion and Denies orthopnea Resp Denies cough, Reports dyspnea and Denies dyspnea on exertion GI Denies hematochezia and Denies change in stool character Musc Details: leg fatigue with activity Denies abnormal gait, Denies muscle cramps, Denies muscle weakness, Denies numbness, Denies radiating pain into limb and Denies tingling Neuro Denies abnormal gait, Denies dizziness, Denies syncope, Denies numbness, Denies tingling and Denies weakness Endo Denies palpitations Physical Exam Vital Signs: Last Vital Signs Pulse 55 04/05/25 08:53 BP 140/70 H 04/05/25 08:53 BMI result Body Mass Index 28.0 Const General: cooperative, healthy appearing, comfortable and no acute distress Orientation/consciousness: patient oriented x3 Neck Neck: Yes normal visual inspection and Yes no JVD Resp Effort & Inspection: normal respiratory effort Auscultation: clear to auscultation bilaterally, no crackles, no rales, no rhonchi and no wheezes Cardio Jugular venous distension: no JVD Rate: regular rate Rhythm: regular rhythm Heart sounds: S1 normal heart sound present, S2 normal heart sound present, no gallops, no murmurs and no rubs Neuro General: patient oriented x3 Extrem General: Yes normal to inspection, No no pedal edema and No calf tenderness Psych Appearance: grossly normal Mental Status: mental status grossly normal Speech and movement: Normal speech and movement present Assessment & Plan Assessment & Plan (1) Acute congestive heart failure: Code(s): I50.9 - Heart failure, unspecified Category: Medical Plan: New onset of Congestive heart failure, hypoxic respiratory failure in the setting cardiomyopathy with EF 35%,grade 2 diastolic dysfunction thought to be related to uncontrolled hypertension. He was started on appropriate medication management. At this time blood pressure remains mildly elevated. He does not appear fluid overloaded on exam. Continue Lasix 20 mg daily. Continue carvedilol and will change valsartan over to Entresto for neurohormonal modulation. BMP in 1 week. At this time continue aspirin and atorvastatin. He reports some leg fatigue which he believes may be from statin use. Will have him trial reduction in atorvastatin by half to see if that helps. He needs ischemic eval, will order an exercise nuclear stress test for further evaluation. If unable to exercise then perform a pharmacological nuclear stress test. Signs and symptoms of heart failure and angina reviewed with him. The need for good blood pressure control reviewed. Instructed on reduction in alcohol use. Cardiology follow-up in 1 month, sooner if needed. (2) Hypertensive urgency: Code(s): I16.0 - Hypertensive urgency Category: Medical Plan: During hospitalization. Better controlled at this time. (3) HTN (hypertension): Code(s): I10 - Essential (primary) hypertension Category: Medical Plan: Blood pressure goal less than 130/80. Mildly elevated. Changing valsartan to Entresto. Continue carvedilol. (4) Cardiomyopathy: Code(s): I42.9 - Cardiomyopathy, unspecified Category: Medical Plan: As above. May be related to uncontrolled hypertension. Also possibly from alcohol use. Will evaluate for ischemia. (5) Diastolic dysfunction: Code(s): I51.89 - Other ill-defined heart diseases Category: Medical Plan: Grade 2 diastolic dysfunction noted on recent echocardiogram. (6) Abnormal EKG: Code(s): R94.31 - Abnormal electrocardiogram [ECG] [EKG] Category: Medical Plan: EKG shows septal Q-wave. No prior known history of CAD. Cardiac risk factors of hypertension, age. Will check nuclear stress test. (7) Hospital discharge follow-up: Code(s): Z09 - Encounter for follow-up examination after completed treatment for conditions other than malignant neoplasm Category: Medical Plan: Discharge summary reviewed. Plan I discussed with the patient the transition from valsartan to Entresto and detailed its efficacy in improving heart function. I informed him of potential side effects and the need for careful dosage transition. We also reviewed the atorvastatin dose modification due to muscle fatigue complaints and explained the connection between statins and muscle symptoms. I emphasized the necessity of a nuclear stress test to assess coronary arteries, addressing its relevance to heart health. I recommended monitoring his blood pressure daily. The risks, benefits, expected outcomes, and possible side effects of these changes were thoroughly discussed, and the patient expressed understanding and willingness to proceed. Follow-up is scheduled. Orders: Orders CA stress test Today I42.9 - Cardiomyopathy, unspecified, I50.9 - Heart failure, unspecified NM cardiolite stress test Today I42.9 - Cardiomyopathy, unspecified, I50.9 - Heart failure, unspecified Basic Metabolic Panel 1 Week I42.9 - Cardiomyopathy, unspecified B Type Natriuretic Peptide Today I42.9 - Cardiomyopathy, unspecified Medications: New sacubitril-valsartan 49-51 mg (Entresto) Stop Valsartan Start Entresto 1 tab BID 1 tab PO BID 60 tabs 5RF Patient Instructions: - Switch from valsartan to Entresto upon receipt. - Take half of the atorvastatin dose to see if leg fatigue improves. - Monitor blood pressure daily at home. - Complete the nuclear stress test as scheduled to evaluate heart arteries. - Contact the medical office if there are significant changes in symptoms or weight. - Continue with regular physical activity as tolerated. - Avoid excessive alcohol consumption to support heart health. Patient was informed and verbally consented to the use of an ambient scribe for clinic note documentation during this visit. Visit time spent on chart review, interview, assessment, orders, documentation. Coding Level of Care Code Est Pt Level 4 (16342) Complex EM visit Add On G2211 Diagnoses Acute congestive heart failure I50.9 Hypertensive urgency I16.0 HTN (hypertension) I10 Cardiomyopathy I42.9 Diastolic dysfunction I51.89 Abnormal EKG R94.31 Hospital discharge follow-up Z09 Time Spent (min) 32
[2025-04-05 08:53] VITALS: BP 140/70; PULSE 55; BMI 28.0
--- OUTSIDE RECORDS SUMMARY | 2025-04-05 08:53 | XMS_ITS | Clinical Summary ---
Author Organization [facility] ity Address [address] [place] [address] Care Team Providers Care Interior Specialist Name Role Phone Unavailable Primary Care Provider [...]
== END 2025-04-05 09:20 | disposition home or self-care (01) ==
LOC: HO.HCS 08:37
PROVIDERS: Visit Provider Nurse Practitioner Family
DX: I50.9 Heart failure, unspecified (principal); I16.0 Hypertensive urgency; I10 Essential (primary) hypertension; I42.9 Cardiomyopathy, unspecified; I51.89 Other ill-defined heart diseases; R94.31 Abnormal electrocardiogram [ECG] [EKG]; Z09 Encounter for follow-up examination after completed treatment for conditions other than malignant neoplasm
CPT/HCPCS: 99214; G2211

== ENCOUNTER → 2025-04-05 08:36 | Outpatient (BNVA) | payer MEDICARE, SELFPAY | PROVIDERS: Visit Provider Nurse Practitioner Family | DX: I11.0 Hypertensive heart disease with heart failure (principal); I50.9 Heart failure, unspecified; E78.5 Hyperlipidemia, unspecified; I16.0 Hypertensive urgency; I42.9 Cardiomyopathy, unspecified; R94.31 Abnormal electrocardiogram [ECG] [EKG]; Z09 Encounter for follow-up examination after completed treatment for conditions other than malignant neoplasm | CPT/HCPCS: 99212 ==

== ENCOUNTER → 2025-04-29 09:43 | Outpatient (REF) | payer MEDICARE, SELFPAY ==
[2025-04-29 10:47] LABS: B Type Natriuretic Peptide 188 pg/mL (<100)
[2025-04-29 10:50] LABS: Anion Gap 14 (12-20); Blood Urea Nitrogen 15 mg/dL (9-16); Calcium 9.1 mg/dL (8.4-10.2); Carbon Dioxide 24 mmol/L (22-29); Chloride 109 mmol/L (96-108); Estimated Glomerular Filt Rate > 60; Glucose Random 106 mg/dL (60-115); Potassium 3.9 mmol/L (3.3-5.1); Sodium 143 mmol/L (135-145)
== END ==
LOC: HO.CARD 09:43
PROVIDERS: Visit Provider Nurse Practitioner Family
DX: I42.9 Cardiomyopathy, unspecified (principal)
CPT/HCPCS: 36415; 80048; 83880

== ENCOUNTER 2025-05-06 09:44 | Outpatient (AMB) | payer MEDICARE, SELFPAY ==
[2025-05-06 09:53] VITALS: BP 108/82; PULSE 74; BMI 28.2
--- NOTE | 2025-05-06 09:53 | A.OFFVIS_ITS ---
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 Required: No Allergies lisinopril Allergy (Intermediate, Verified 05/06/25 09:55) Muscle Pain Medication List - Last Reconciled 05/06/25 by Mitzy Rios NP-C acetaminophen (Tylenol) 650 mg PO Q4H PRN albuterol sulfate 90 mcg/actuation 2 puffs inhalation Q6H PRN aspirin 81 mg PO DAILY atorvastatin 40 mg PO BEDTIME carvedilol 6.25 mg PO BID furosemide (Lasix) 20 mg PO DAILY [id number] 162-70-266-300 mcg (Centrum Silver Men) 1 tab PO DAILY sacubitril-valsartan 49-51 mg (Entresto) 1 tab PO BID HPI HPI 1 mth s/p nuc stress: Details: Pablo is a 64-year-old male with past medical history of alcohol use, hypertension, hyperlipidemia who was recently admitted to [facility] with increased shortness of breath and treated for hypoxic respiratory failure and Congestive heart failure. An echocardiogram showed EF 35% with grade 2 diastolic dysfunction. He was diuresed and started on Lasix 40 mg daily. His blood pressure was elevated and he was put on carvedilol and valsartan. On last visit a nuclear stress test was done however when he arrived his blood pressure was elevated and test could not be completed. His carvedilol dose was increased and he now presents for follow-up Today he reports he has been feeling well with no concerning symptoms. He has no shortness of breath PND, orthopnea or edema. No chest discomfort at rest or with activity. No heart palpitations, lightheadedness, presyncope, syncope. Compliant with all medications. He periodically checks his blood pressure at home. In the last few days it has been good with systolic running in the low 100s. [facility] Medical History Diverticulosis Smoker Hx of renal calculi Cervical radiculopathy Elevated cholesterol HTN (hypertension) Surgical History Hx of colonoscopy Family History Father Prostate cancer Mother Bone cancer Social History Household Members: Other Household Members Other:: 5 friends Housing: House Do you presently have visiting nurse or other home services: No Alcohol intake: current Alcohol intake frequency: a few times a month Patient Tobacco Use Status: Former Tobacco user Tobacco use type: Cigarette Cigarettes Per Day: 10 Years Smoked: 45 e-Cigarette/Vaping Use: Never Used Second Hand Smoke Exposure: No service: No Current occupational status: employed Cognitive needs: No Hearing needs: No Vision needs: No Review of Systems Const All systems reviewed & are unremarkable except as noted in HPI and below ENT Denies dizziness Card Denies chest pain, Denies chest pain at rest, Denies chest pain with activity, Denies rapid heart rate, Denies pedal edema, Denies edema, Denies leg edema, Denies lightheadedness, Denies palpitations, Denies dyspnea, Denies dyspnea on exertion and Denies orthopnea Resp Denies cough, Denies dyspnea and Denies dyspnea on exertion GI Denies hematochezia and Denies change in stool character Musc Denies abnormal gait, Denies limited range of motion, Denies muscle cramps, Denies muscle weakness, Denies numbness, Denies radiating pain into limb, Denies stiffness and Denies tingling Neuro Denies abnormal gait, Denies dizziness, Denies numbness and Denies tingling Endo Denies palpitations Physical Exam Vital Signs: Last Vital Signs Pulse 74 05/06/25 09:53 BP 108/82 05/06/25 09:53 BMI result Body Mass Index 28.2 Const General: cooperative, healthy appearing, comfortable and no acute distress Orientation/consciousness: patient oriented x3 Neck Neck: Yes normal visual inspection and Yes no JVD Resp Effort & Inspection: normal respiratory effort Auscultation: clear to auscultation bilaterally, no crackles, no rales, no rhonchi and no wheezes Cardio Jugular venous distension: no JVD Rate: regular rate Rhythm: regular rhythm Heart sounds: S1 normal heart sound present, S2 normal heart sound present, no gallops, no murmurs and no rubs Neuro General: patient oriented x3 Extrem General: Yes normal to inspection, No no pedal edema and No calf tenderness Psych Appearance: grossly normal Mental Status: mental status grossly normal Speech and movement: Normal speech and movement present Assessment & Plan Assessment & Plan (1) Acute congestive heart failure: Code(s): I50.9 - Heart failure, unspecified Category: Medical Plan: New onset of Congestive heart failure, hypoxic respiratory failure (March 2025) in the setting uncontrolled hypertension with finding of cardiomyopathy with EF 35%,grade 2 diastolic dysfunction. He was started on guideline directed medical therapy. Blood pressure elevated at time of nuclear stress test, test postponed and carvedilol dose increased. Blood pressure now well controlled. Labs 2024 showed creatinine 1.16, potassium 3.9. Continue Lasix 20 mg daily. Continue carvedilol and Entresto for neurohormonal modulation. Continue aspirin and atorvastatin. He still needs nuclear stress test and will have it rescheduled. Will plan limited echo prior to his next visit to reassess EF and wall motion. Signs and symptoms of heart failure and angina reviewed with him. Cardiology follow-up in 2-3 month, sooner if needed. (2) HTN (hypertension): Code(s): I10 - Essential (primary) hypertension Category: Medical Plan: Blood pressure goal less than 130/80. Well controlled at present. Continue carvedilol, Entresto, Lasix. If blood pressure becomes elevated again would increase his Entresto dose.. (3) Cardiomyopathy: Code(s): I42.9 - Cardiomyopathy, unspecified Category: Medical Plan: As above. May be related to uncontrolled hypertension. Also possibly from alcohol use. Will evaluate for ischemia. (4) Diastolic dysfunction: Code(s): I51.89 - Other ill-defined heart diseases Category: Medical Plan: Grade 2 diastolic dysfunction noted on recent echocardiogram. (5) Abnormal EKG: Code(s): R94.31 - Abnormal electrocardiogram [ECG] [EKG] Category: Medical Plan: EKG shows septal Q-wave. No prior known history of CAD. Cardiac risk factors of hypertension, age. Will check nuclear stress test. Plan I discussed with the patient the importance of completing the stress test to assess cardiac function and the rationale for holding carvedilol on the morning of the test. We also talked about the continuation of baby aspirin due to the potential for coronary artery disease, although this is not confirmed. I emphasized the need for ongoing blood pressure management and the current effectiveness of his medication regimen. Follow-up was arranged for three months, with a plan to communicate test results by phone unless immediate concerns arise. Orders: Orders CA Echo Limited 2 Months I42.9 - Cardiomyopathy, unspecified Patient Instructions: - Hold carvedilol on the morning of the stress test, but take Entresto. - Bring carvedilol to take after the stress test. - Continue taking baby aspirin as directed. - Monitor for symptoms such as shortness of breath or leg swelling and report if they occur. - Follow up in three months or sooner if advised. Patient was informed and verbally consented to the use of an ambient scribe for clinic note documentation during this visit. Visit time spent on chart review, interview, assessment, orders, documentation. Coding Level of Care Code Est Pt Level 4 (24558) Complex EM visit Add On G2211 Diagnoses Acute congestive heart failure I50.9 HTN (hypertension) I10 Cardiomyopathy I42.9 Diastolic dysfunction I51.89 Abnormal EKG R94.31 Time Spent (min) 28
--- OUTSIDE RECORDS SUMMARY | 2025-05-06 10:13 | XMS_ITS | Clinical Summary ---
Author Organization [facility] ity Address [address] [place] [address] Care Team Providers Care Cafeteria Cashier Name Role Phone Unavailable Primary Care Provider [...]
--- OUTSIDE RECORDS SUMMARY | 2025-05-06 10:13 | XMS_ITS | Patient Health Record ---
Author Organization [facility] Address [address] [place] [address] Care Team Providers Care Pharmaceutical Process Engineer Name Role Phone Tunde Allison M.D. Primary Care Provider Shanelle avinashilasylvester Neeraj Cervantes Unavailable [phone] Reason For Referral No Information Medications Medication SIG (Take, Route, Fr equency, Duration) Notes Start Date End Date Status Lisinopril 20MG Acti ve Gabapentin 100MG Act jany dilTIAZem HCl ER 240MG Active Ibuprofen 800mg Acti ve Suprep Bowel Prep 1 kit as directed Oral ly as directed for 1 dose 01/19/2014 Active Problems Problem Type SNOMED Code ICD Code Onset Dates Problem Status W/U Status Risk Notes Problem Colon cancer screening (820901240) Colon cancer screening (V76.51) Active confirmed Problem Encounter for long-term (current) use of non-steroidal anti-inflammat ories (V58.64) Active confirmed Plan Of Treatment Future Test Test Name Order Date COLONOSCOPY 01/19/2014 Insurance Providers Payer Name Payer Address Payer Phone Subscriber Number Group Number Insured Name Patient Relationship to Insured Coverage Start Date Coverage End Date [facility] [address] [address] [place] [address] [id number] CALEB RAMOS Self - patient is the insured Medical (General) History Medical History History ICD Code hypertension Neck and arm pain--uses Chandni pentin--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
== END 2025-05-06 10:32 | disposition home or self-care (01) ==
LOC: HO.HCS 09:45
PROVIDERS: Visit Provider Nurse Practitioner Family
DX: I50.9 Heart failure, unspecified (principal); I10 Essential (primary) hypertension; I42.9 Cardiomyopathy, unspecified; I51.89 Other ill-defined heart diseases; R94.31 Abnormal electrocardiogram [ECG] [EKG]
CPT/HCPCS: 99214; G2211

== ENCOUNTER → 2025-05-06 09:44 | Outpatient (BNVA) | payer MEDICARE, SELFPAY | PROVIDERS: Visit Provider Nurse Practitioner Family | DX: I10 Essential (primary) hypertension (principal); I50.9 Heart failure, unspecified; I42.9 Cardiomyopathy, unspecified; I51.89 Other ill-defined heart diseases; R94.31 Abnormal electrocardiogram [ECG] [EKG] | CPT/HCPCS: 99212 ==

== ENCOUNTER → 2025-05-10 09:10 | Outpatient (REF) | payer MEDICARE, SELFPAY ==
--- NOTE | ~2025-05-10 | NM_ITS ---
EXERCISE MYOCARDIAL PERFUSION STUDY INDICATION: Cardiomyopathy to evaluate for myocardial ischemia TECHNIQUE: The patient was brought in for an exercise perfusion study on May 10, 2025. Patient performed exercise as per Christopher protocol and was injected 25 mCi of sestamibi once target heart rate was achieved. Images were obtained using the SPECT gamma camera interlaced with the gating device. Images were obtained in supine position. Resting perfusion study was performed on May 12, 2025. Patient was administered 25 mCi of sestamibi intravenously at rest. Images were then obtained in supine position. Images obtained without without CT attenuation. Total DLP 67 mGy-cm. Images were processed with the software and compared side to side in short axis, horizontal long axis and vertical long axis views. FINDINGS: Raw images were reviewed The stress perfusion study showed nonattenuated images show moderately reduced uptake in the inferior wall and mildly reduced uptake in the inferoseptal wall of the LV myocardium. Remainder of the LV myocardium is normally perfused. Attenuation corrected images show mildly reduced uptake in the apex of the LV myocardium. The gated study shows reduced LV systolic function with calculated LVEF of 33%. LV cavity is moderately dilated in size. The gated study shows diffusely reduced wall thickening and contraction of segments. Resting study shows no change in perfusion pattern compared to stress perfusion study. Gating at rest reveals diffuse hypokinesis wall motion with ejection fraction at 45%. The findings are consistent with no reversible defect suggestive of ischemia. NM/NM cardiolite stress test IMPRESSION: 1. Myocardial perfusion imaging study shows no myocardial ischemia. 2. Gated LVEF is 33% with stress and 45% with rest. 3. Transient ischemic dilatation not present but LV cavity is dilated. EKG revealed nondiagnostic changes. Electronically signed by: Isiah Donaldson MD 05/12/2025 03:17 PM EDT
--- NOTE | 2025-05-10 09:13 | CA_ITS ---
Acquisition Time: 2025-05-10 09:44:34 Total Exercise Time: 00:05:01 Test Indications: HF,Abnormal ECG Medications: ALBUTEROL ASA ATORVASTATIN CARVEDILOL FUROSEMIDE ENTRESTO Protocol: DEV Max HR: 141 BPM 90% of Pred: 155 BPM Max BP: 198/110 mmHG Max Work Load: 5.0 METS Exercise stress test with exercise 5 mins 1 sec of Dev Protocol, held at Stage 1 with inline at 12%, achieving 90% MPHR, with reports of severe SOB, no chest pain, with isolated PVCs, with normotensive response to exercise. Nondiagnostic EKG for ischemia, baseline ST- T waves abnormalities. In recovery, breathing returned to baseline. Nuclear images pending. Test reviewed with dr. Lemus. Referred By: Mitzy Rios Electronically Signed By: Rodger Fields
== END ==
LOC: HO.CARD 09:10
PROVIDERS: Visit Provider Nurse Practitioner Family
DX: I50.9 Heart failure, unspecified (principal); I42.9 Cardiomyopathy, unspecified
CPT/HCPCS: 78452; 93017; A9500

== ENCOUNTER → 2025-05-10 09:13 | Outpatient (BNV) | payer MEDICARE, SELFPAY | DX: R06.02 Shortness of breath (principal); I49.3 Ventricular premature depolarization | CPT/HCPCS: 78452; 93016; 93018 ==

== ENCOUNTER → 2025-07-07 10:39 | Outpatient (REF) | payer MEDICARE, SELFPAY ==
--- NOTE | 2025-07-07 10:42 | CA_ITS ---
Transthoracic Echocardiogram Patient (Last, First, Middle): Pablo Flores J Gender: M Date of : 1960 Age: 64 Procedure Date: 07/07/2025 Procedure Type: Transthoracic Echocardiogram Location: OP Height: 175.26 cm Weight: 81.65 kg BSA: 1.98 m2 Heart Rate: bpm BP: 110 / 80 mmHg Energy Advisor: TO/RC Referring MD: Mitzy Rios SUPERSONIC ENGINEERBrianC Symptoms: I42.9 - Cardiomyopathy, unspecified Study Quality: Fair/Contrast Conclusions: - Mildly reduced LV ejection fraction 45-50% with impaired relaxation filling pattern with increased filling pressures Findings Procedure Information Contrast agent, definity, is being given per protocol without apparent complications. Left Ventricle Normal left ventricular cavity size. There is normal left ventricular wall thickness. The left ventricular systolic function is mildly decreased. The visually estimated ejection fraction is between 45-50%. There is mild global hypokinesis. Spectral Doppler is indicative of an impaired relaxation filling pattern. Elevated filling pressures. E/E prime ratio is >15, consistent with elevated filling pressures. Prior Study Comparison Changes noted compared to prior study dated: 03/11/2025. LV ejection fraction has improved Measurements 2D Linear Measurements IVSd: 1.23 0.6-0.9/0.6-1.0 cm LVIDd: 4.83 3.9-5.3/4.2-5.9 cm LVIDd Index: 2.44 2.4-3.2/2.2-3.1 cm/m2 LVIDs: 3.91 2.0-3.6 cm LVPWd: 0.89 0.7-1.1 cm LV Mass: 231.79 67-162/88-224 g LV Mass Index: 117.07 43-95/49-115 g/m2 LVOT Diam: 2.60 3.0+(-)1.3 cm 2D Systolic Function EF 4C: 43.00 >55% EF 2C: 49.90 >55% EF BiP: 47.60 >55% Mitral Valve MV Pk E: 0.72 MV PK A: 1.05 MV Decel Time: 241.00 E/A: 0.70 E'Lateral: 4.03 E'Medial: 3.15 E/E' Med: 22.90 E/E' Lat: 17.90 PHT: 70.00 MVA PHT: 3.14 Decel Grant: 2.99 LVOT LVOT Pk Reji: 0.84 LVOT Mn Reji: 0.60 LVOT VTI: 0.16 LVOT Pk Grad: 3.00 LVOT Mn Grad: 2.00 LVOT Diam: 2.60 LVOT Area: 5.31 Diastolic Function MV Pk E: 0.72 MV Pk A: 1.05 E/A: 0.70 E'Medial: 3.15 E/E' Med: 22.90 E' Laterial: 4.03 E/E' Lat: 17.90 Tricuspid Valve RA Press: 3.00 Updated in Other Vendor System with Status of Final Isiah Donaldson MD electronically signed on 07/07/2025 1:08:11 PM with status of Final
== END ==
LOC: HO.CARD 10:39
PROVIDERS: Visit Provider Nurse Practitioner Family
DX: I42.9 Cardiomyopathy, unspecified (principal)
CPT/HCPCS: 93308; Q9957

== ENCOUNTER → 2025-07-07 10:42 | Outpatient (BNV) | payer MEDICARE, SELFPAY | PROVIDERS: Visit Provider Internal Medicine Cardiovascular Disease | DX: I42.8 Other cardiomyopathies (principal) | CPT/HCPCS: 93308; 93321 ==

== ENCOUNTER 2025-08-24 12:19 | Outpatient (AMB) | payer MEDICARE, SELFPAY ==
--- NOTE | 2025-08-24 12:42 | MHC.OFFVIS ---
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 He had a hospitalization for congestive heart failure few months back. At that time, he was not having any good medical care and not take any medication for her hypertension either. He underwent workup with an echocardiogram and that showed LV dysfunction. Thought to be hypertension related. Meds were optimized then he was discharged home. Currently, he states much more compliant than before. No overt symptoms from cardiac. No documented coronary disease or myocardial infarction. [facility] Medical History Diverticulosis Smoker Hx of renal calculi Cervical radiculopathy Elevated cholesterol HTN (hypertension) Surgical History Hx of colonoscopy Family History Father Prostate cancer Mother Bone cancer Social History Household Members: Other Household Members Other:: 5 friends Housing: House Do you presently have visiting nurse or other home services: No Alcohol intake: current Alcohol intake frequency: a few times a month Patient Tobacco Use Status: Former Tobacco user Tobacco use type: Cigarette Cigarettes Per Day: 10 Years Smoked: 45 e-Cigarette/Vaping Use: Never Used Second Hand Smoke Exposure: No service: No Current occupational status: employed Cognitive needs: No Hearing needs: No Vision needs: No Review of Systems Const Denies chills, Denies fatigue, Denies fever(s), Denies frequent falls, Denies weakness, Denies weight gain and Denies weight loss ENT Denies dizziness Card Denies chest pain, Denies leg edema, Denies lightheadedness, Denies palpitations, Denies dyspnea and Denies dyspnea on exertion Resp Denies cough, Denies dyspnea and Denies dyspnea on exertion GI Denies hematochezia Musc Denies abnormal gait, Denies muscle weakness, Denies numbness, Denies radiating pain into limb and Denies tingling Neuro Denies abnormal gait, Denies dizziness, Denies frequent falls, Denies numbness, Denies tingling and Denies weakness Endo Denies fatigue and Denies palpitations Physical Exam Vital Signs: Last Vital Signs Pulse 88 08/24/25 12:45 BP 150/70 H 08/24/25 12:45 BMI result Body Mass Index 29.6 Const General: comfortable and no acute distress Orientation/consciousness: patient oriented x3 HEENT Other: Unremarkable Head: Yes normal to inspection Neck Neck: Yes normal visual inspection Chest Chest palpation & inspection: normal inspection of the chest Resp Auscultation: clear to auscultation bilaterally Cardio Palpation: normal PMI Heart sounds: S1 normal heart sound present, S2 normal heart sound present, no gallops, no murmurs and no rubs GI Palpation (GI): Soft to palpation Back/Spine/Pelvis Other: unremarkable Skin General skin exam: no rashes or lesions noted Neuro General: patient oriented x3 Extrem General: Yes normal to inspection Psych Mental Status: mental status grossly normal Assessment & Plan Assessment & Plan (1) Cardiomyopathy: Code(s): I42.9 - Cardiomyopathy, unspecified Category: Medical (2) Atherosclerotic cardiovascular disease: Code(s): I25.10 - Atherosclerotic heart disease of nikolski coronary artery without angina pectoris Category: Medical (3) HTN (hypertension): Code(s): I10 - Essential (primary) hypertension Category: Medical Plan Cardiac studies reviewed. Echocardiogram from 03/2025-LVEF 35% with moderate diastolic dysfunction. Basal/mid inferior segments thought to be akinetic. Moderate aortic and mitral valve calcification. In the repeat echocardiogram from 07/2025-LVEF improved to 45-50%. In the stress test, he was able to do 5 minutes on Christopher protocol and had shortness of breath but no clear EKG evidence of ischemia. Perfusion imaging was unremarkable. In the chest CT scan, described to have coronary calcification in the left main, LAD, circumflex and RCA. Moderate to advanced emphysema. 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 He is doing reasonably well. As blood pressure is still on the higher side, we can go up on the Entresto dosing. Continue carvedilol. In the future, other meds include potentially spironolactone/Jardiance. We will slowly make changes as previously was not taking anything at all. With regard to coronary disease, noted on the CAT scan but no overt ischemic findings on the stress test. Clinically, he has got no angina. We will monitor this for now. Continue statins. We will follow up in 6 months' time with another echocardiogram. He will need to do labs in a couple of weeks after the new dose of Entresto was started. We discussed about this today. Discussion Notes During the visit, we discussed the need to adjust the patient's medication regimen to better manage hypertension and improve heart function. The patient was informed about the importance of medication adherence and the potential need for further adjustments based on future assessments. We also talked about lifestyle modifications, including increased physical activity and dietary changes, to address weight gain. Patient was informed and verbally consented to the use of an ambient scribe for clinic note documentation during this visit. Orders: Orders Comprehensive Met. Panel 2 Weeks I42.9 - Cardiomyopathy, unspecified Lipid Panel 2 Weeks E78.5 - Hyperlipidemia, unspecified NT Pro B Type Natriuretic Pept 2 Weeks I42.9 - Cardiomyopathy, unspecified, I50.9 - Heart failure, unspecified CA echo transthoracic complete 6 Months I42.9 - Cardiomyopathy, unspecified Medications: New sacubitril-valsartan 97-103 mg (Entresto) 1 tab PO BID 180 tabs 3RF 90 days Discontinued sacubitril-valsartan 49-51 mg (Entresto) Stop Valsartan Start Entresto 1 tab BID Discontinued Reason: Doctor's Order 1 tab PO BID 90 tabs 3RF Patient Instructions: - Take the new dose of Entresto as prescribed. - Monitor blood pressure regularly and aim for a reading close to 120 mmHg systolic. - Increase physical activity gradually and incorporate exercises that are manageable. - Modify dietary habits, reducing bread intake to help manage weight. - Schedule follow-up blood work in a couple of weeks to monitor kidney function. Coding Level of Care Code Est Pt Level 4 (50778) Complex EM visit Add On G2211 Diagnoses Cardiomyopathy I42.9 Atherosclerotic cardiovascular disease I25.10 HTN (hypertension) I10
[2025-08-24 12:45] VITALS: BP 150/70; PULSE 88; BMI 29.6
--- OUTSIDE RECORDS SUMMARY | 2025-08-24 15:53 | XMS_ITS | Patient Health Record ---
Author Organization [facility] Address [address] [place] [address] Care Team Providers Care Salvage Grinder Name Role Phone Tunde Allison M.D. Primary Care Provider Shanelle avinashilaslyvester Neeraj Cervantes Unavailable [phone] Reason For Referral No Information Medications Medication SIG (Take, Route, Fr equency, Duration) Notes Start Date End Date Status Lisinopril 20MG Acti ve Gabapentin 100MG Act jany dilTIAZem HCl ER 240MG Active Ibuprofen 800mg Acti ve Suprep Bowel Prep 1 kit as directed Oral ly as directed; Duration: 1 dose 01/19/2014 Activ e Problems Problem Type SNOMED Code ICD Code Onset Dates Problem Status W/U Status Risk Notes Problem Colon cancer screening (925945435) Colon cancer screening (V76.51) Active confirmed Problem Encounter for long-term (current) use of non-steroidal anti-inflammat ories (V58.64) Active confirmed Plan Of Treatment Future Test Test Name Order Date COLONOSCOPY 01/19/2014 Insurance Providers Payer Name Payer Address Payer Phone Subscriber Number Group Number Insured Name Patient Relationship to Insured Coverage Start Date Coverage End Date [facility] [address] [address] [place] [address] [id number] CALEB RAMOS Self - patient is the insured Medical (General) History Medical History History ICD Code hypertension Neck and arm pain--uses Chandni pentin--told of C-spine arthritis--he may be going for a steroid injection Denies [place],DM,CVA,Lung disease,renal dise ase
== END 2025-08-24 13:00 | disposition home or self-care (01) ==
LOC: HO.HCS 12:22
PROVIDERS: Visit Provider Internal Medicine
DX: I42.9 Cardiomyopathy, unspecified (principal); I25.10 Atherosclerotic heart disease of native coronary artery without angina pectoris; I10 Essential (primary) hypertension
CPT/HCPCS: 99214; G2211

== ENCOUNTER → 2025-08-24 12:19 | Outpatient (BNVA) | payer MEDICARE, SELFPAY | PROVIDERS: Visit Provider Internal Medicine | DX: I25.10 Atherosclerotic heart disease of native coronary artery without angina pectoris (principal); I10 Essential (primary) hypertension; I42.9 Cardiomyopathy, unspecified; E78.5 Hyperlipidemia, unspecified | CPT/HCPCS: 99212 ==

== ENCOUNTER 2025-09-10 11:20 | Outpatient (REF) | payer MEDICARE, SELFPAY ==
[2025-09-10 12:28] LABS: Alanine Aminotransferase 23 U/L (0-40); Albumin Level 4.9 g/dL (3.5-5.0); Alkaline Phosphatase 89 U/L (39-117); Anion Gap 15 (12-20); Aspartate Amino Transferase 26 U/L (5-37); Blood Urea Nitrogen 18 mg/dL (9-16); Calcium 9.9 mg/dL (8.4-10.2); Carbon Dioxide 27 mmol/L (22-29); Chloride 107 mmol/L (96-108); Cholesterol 198 mg/dL (<200); Estimated Glomerular Filt Rate 59; HDL Cholesterol 60 mg/dL (>40); Potassium 4.5 mmol/L (3.3-5.1); Sodium 144 mmol/L (135-145); Total Protein 7.9 g/dL (6.5-8.0); Triglycerides 197 mg/dL (<150)
[2025-09-10 12:31] LABS: NT Pro B Type Natriuretic Pept 120.4 pg/mL (<300)
--- OUTSIDE RECORDS SUMMARY | 2025-09-10 13:41 | XMS_ITS | Clinical Summary ---
Author Organization [facility] [address] it[facility] Address [address] [place] [address] Care Team Providers Care Special Education Classroom Aide Name Role Phone Unavailable Primary Care Provider [...] 2009 Zoster Vaccines (1 of 2) 2009 Depression Screening 11/04/2024 COVID-19 Vaccine (1 - 2023-2 5 season) 2025 Influenza Vaccine (#1) 2025 RSV Immunization Adult Patie nts (1 [...]
--- OUTSIDE RECORDS SUMMARY | 2025-09-10 13:41 | XMS_ITS | Patient Health Record ---
Author Organization [facility] Address [address] [place] [address] Care Team Providers Care Cell Biology Scientist Name Role Phone Tunde Allison M.D. Primary Care Provider Shanelle avinashilasylvester Neeraj Cervantes Unavailable [phone] Reason For Referral No Information Medications Medication [...] Status Risk Notes Problem Colon cancer screening (348140136) Colon cancer screening (V76.51) Active confirmed Problem Encounter for long-term (current) use of non-steroidal anti-inflammat ories (V58.64) Active confirmed Plan Of Treatment Future Test Test Name Order Date COLONOSCOPY 01/19/2014 Insurance Providers Payer Name Payer Address Payer Phone Subscriber Number Group Number Insured Name Patient Relationship to Insured Coverage Start Date Coverage End Date [employer] [address] [address] [place] [address] [id number] CALEB RAMOS Self - patient is the insured Medical (General) History Medical History History ICD Code hypertension Neck and arm pain--uses Chandni pentin--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
== END 2025-09-10 11:21 | disposition home or self-care (01) ==
LOC: HO.LAB 11:20
PROVIDERS: Visit Provider Internal Medicine
DX: I42.9 Cardiomyopathy, unspecified (principal); E78.5 Hyperlipidemia, unspecified; I50.9 Heart failure, unspecified
CPT/HCPCS: 36415; 80053; 80061; 83880